=== PATIENT | female | born 1955 | race Caucasian/White ===

== ENCOUNTER 2018-10-19 14:23 | Outpatient (CLI) | payer MEDICARE ==
--- NOTE | 2018-10-19 16:09 | BD ---
BONE DENSITOMETRY USING DEXA 10/19/18 HISTORY: Postmenopausal screening for osteoporosis. FINDINGS: Lumbar Spine: BMD (g/cm2) T-Score: Z-Score: L1 0.850 -1.3 0.3 L2 0.852 -1.6 0.1 L3 0.795 -2.6 -0.8 L4 0.816 -2.2 -2.3 L1-L4 0.826 -2.0 -0.2 Femoral Neck: 0.623 -2.0 -0.5 Total Femur: 0.979 0.3 1.5 The ten year fracture risk for major osteoporotic fracture is 10% and for hip fracture is 1.5%. Impression: Osteopenia. POS: CARL
== END 2018-10-19 14:24 | disposition home or self-care (01) ==
LOC: BICMAMMO 14:23
PROVIDERS: ATTEND Obstetrics & Gynecology
DX: N64.4 Mastodynia (principal); M81.0 Age-related osteoporosis without current pathological fracture; M85.89 Other specified disorders of bone density and structure, multiple sites
CPT/HCPCS: 77066; 77080; G0279

== ENCOUNTER 2018-11-09 08:11 | Outpatient (CLI) | payer MEDICARE ==
--- NOTE | 2018-11-09 10:11 | ULT ---
ULTRASOUND THYROID STANDARD: Date; 11/09/18 HISTORY: Hypothyroidism. COMPARISON: None. TECHNIQUE: Real-time Lange scale and color evaluation of the thyroid was performed. FINDINGS: The isthmus measures 6.0 mm in AP dimension. Right lobe measures 6.0 x 2.0 x 3.0 cm. Left lobe measur es 4.7 x 1.5 x 2.5 cm. The right lobe is hypertrophic. There is a 5.0 x 3.0 x 3.0 mm calcified nodule in the right lobe of the thyroid. Background vascularity is normal. IMPRESSION: Very heterogeneously enlarged right lobe of thyroid may be sequelae of prior thyroiditis. No suspicio us thyroid nodule requiring aspiration or follow-up per TI-RADS criteria. POS: CET
== END 2018-11-09 08:12 | disposition home or self-care (01) ==
LOC: BICULT 08:11
PROVIDERS: ATTEND Internal Medicine
DX: E06.3 Autoimmune thyroiditis (principal); E03.9 Hypothyroidism, unspecified; E07.9 Disorder of thyroid, unspecified; E04.9 Nontoxic goiter, unspecified
CPT/HCPCS: 76536

== ENCOUNTER 2020-02-06 12:29 | Outpatient (CLI) | payer MEDICARE ==
--- NOTE | 2020-02-06 13:41 | ULT ---
THYROID ULTRASOUND INDICATION: Rosario's TECHNIQUE: Grayscale and color Doppler images were obtained of the thyroid gland. COMPARISON: Prior thyroid ultrasound dated November 09, 2018 FINDINGS: Right thyroid lobe: The right thyroid lobe measures 5.1 x 2.5 x 2.2 cm. Lobular with slight increased echogenicity. Small 3.5 mm partially calcified nodule in the interpolar right thyroid gland is stable. No new nodule demonstrated. Thyroid isthmus: The thyroid isthmus measures 0.52 cm. Left thyroid lobe: The left thyroid lobe measures 4.7 x 2.1 x 1.9 cm. No focal thyroid lesion. IMPRESSION: 1. Stable exam. Stable lobulated, mildly prominent thyroid gland may reflect sequela of prior thyroid itis.
== END 2020-02-06 12:30 | disposition home or self-care (01) ==
LOC: BICULT 12:29
PROVIDERS: ATTEND Otolaryngology Plastic Surgery within the Head & Neck
DX: E06.3 Autoimmune thyroiditis (principal)
CPT/HCPCS: 76536

== ENCOUNTER 2020-04-03 19:00 | Outpatient (CLI) | payer MEDICARE | END 2020-04-03 19:01 | disposition home or self-care (01) | LOC: SLEEPLAB 19:00 | PROVIDERS: ATTEND Family Medicine | DX: G47.33 Obstructive sleep apnea (adult) (pediatric) (principal); R53.83 Other fatigue; E66.9 Obesity, unspecified; I10 Essential (primary) hypertension; I25.10 Atherosclerotic heart disease of native coronary artery without angina pectoris; I51.89 Other ill-defined heart diseases | CPT/HCPCS: 95811 ==

== ENCOUNTER 2020-05-28 14:42 | Outpatient (CLI) | payer MEDICARE ==
--- NOTE | 2020-05-28 15:13 | ULT ---
EXAM: Left lower extremity venous Doppler HISTORY: Left foot injury 2 weeks ago. Continued swelling/edema in this region. FINDINGS: Grayscale, color-flow, Doppler evaluation, spectral analysis of the left lower extremity venous struc tures is performed with 2-D imaging. The left common femoral, superficial femoral, popliteal, posterior tibial, proximal greater saphenous and profunda femoral veins are imaged. There is normal luminal compressibility, flow, and augmentation in the visualized deep venous structu res of the left lower extremity. There is a circumscribed hypoechoic area seen at the dorsal aspect of the left foot which measures 2. 5 cm x 2.3 cm x 0.7 cm. Color flow evaluation does not demonstrate flow within this structure. This could represent a small hematoma given history of recent injury. IMPRESSION: 1. No evidence of a deep vein thrombosis in the visualized deep venous structures left lower extremit y. 2. Hypoechoic masslike structure dorsal aspect left foot which likely represents a hematoma given brenda t this is site of recent injury. Follow-up evaluation is recommended to ensure resolution.
== END 2020-05-28 14:43 | disposition home or self-care (01) ==
LOC: BICULT 14:42
PROVIDERS: ATTEND Family Medicine
DX: R60.0 Localized edema (principal)

== ENCOUNTER 2021-02-26 12:57 | Outpatient (CLI) | payer MEDICARE | END 2021-02-26 12:58 | disposition home or self-care (01) | LOC: BICULT 12:57 | PROVIDERS: ATTEND Otolaryngology Plastic Surgery within the Head & Neck | DX: E06.3 Autoimmune thyroiditis (principal) | CPT/HCPCS: 76536 ==

== ENCOUNTER 2021-06-10 13:51 | Outpatient (CLI) | payer MEDICARE | END 2021-06-10 13:52 | disposition home or self-care (01) | LOC: BICULT 13:51 | PROVIDERS: ATTEND Family Medicine | DX: R10.2 Pelvic and perineal pain (principal); R10.31 Right lower quadrant pain; R93.89 Abnormal findings on diagnostic imaging of other specified body structures | CPT/HCPCS: 76856 ==

== ENCOUNTER 2021-09-02 00:46 | Inpatient (IN) | payer MEDICARE ==
[2021-09-02 01:14] LABS: #Basophils 0.1 thou/uL (0.0-0.2); #Eosinphils 0.4 thou/uL (0.0-0.7); #Lymphocytes 4.4 thou/uL (1.20-3.40); #Monocytes 0.7 thou/uL (0.11-0.59); #Neutrophils 4.9 thou/uL (1.40-6.50); %Basophils 0.7 % (0.0-1.0); %Eosinophils 3.9 % (0.0-10.0); %Lymphocytes 41.5 % (21.0-51.0); %Monocytes 7.1 % (0.0-10.0); %Neutrophils 46.8 % (42.0-75.0); Hemoglobin 12.2 g/dL (12.0-16.0); Mean Corpuscular HGB CONC 34.4 g/dL (32.0-36.0); Mean Corpuscular Hemoglobin 29.5 pg (27.0-31.0); Mean Corpuscular Volume 85.8 fL (78.0-98.0); Mean Platelet Volume 6.8 fL (7.4-10.4); Platelet Count 355 thou/uL (130-400); Red Blood Cell (RBC) Count 4.13 mill/uL (4.20-5.40); White Blood Cell (WBC) Count 10.5 thou/uL (4.8-10.8)
[2021-09-02] MEDS ORDERED: Diltiazem HCl 125 MG, Admixture Fee 1 EACH in Sodium Chloride 0.9% 100 ML IVPB SCH (01:15)
[2021-09-02 01:34] LABS: ALT (SGPT) 19 U/L (8-55); AST (SGOT) 18 U/L (5-34); Albumin 4.3 g/dL (3.4-4.8); Alkaline Phosphatase 80 U/L (40-110); Anion Gap 14 mmol/L (10-20); BUN (Urea Nitrogen) 17 mg/dL (9.8-20.1); Bilirubin, Total 0.3 mg/dL (0.2-1.2); Calc. Creatinine Clearance 0 mL/min (70-130); Calcium 9.5 mg/dL (7.8-10.44); Carbon Dioxide 26 mmol/L (23-31); Chloride 105 mmol/L (98-107); Globulin 2.9 g/dL (2.4-3.5); Glucose 104 mg/dL (80-115); Potassium 3.7 mmol/L (3.5-5.1); Protein, Total 7.2 g/dL (5.8-8.1); Sodium 141 mmol/L (136-145)
[2021-09-02] MEDS ORDERED: Acetaminophen 650 MG Suppository PR PRN (03:06)
[2021-09-02] MEDS ORDERED: Acetaminophen 325 MG TAB PO PRN (03:06)
[2021-09-02 04:47] LABS: Magnesium 1.7 mg/dL (1.6-2.6); Phosphorus 3.6 mg/dL (2.3-4.7)
[2021-09-02 07:06] LABS: Troponin I 0.053 ng/mL (< 0.028)
[2021-09-02 09:27] VITALS: BMI 34.3
[2021-09-02] MEDS ORDERED: Enoxaparin Sodium 80 MG/0.8 ML SYRINGE ONE (09:39)
[2021-09-02] MEDS: Enoxaparin Sodium 80 MG/0.8 ML SYRINGE SC SCH ×2 (09:45→20:03)
[2021-09-02] MEDS ORDERED: Acetaminophen 325 MG TAB ONE (09:50)
[2021-09-02 10:36] LABS: Troponin I 0.044 ng/mL (< 0.028)
[2021-09-02 11:35] LABS: SARS-CoV-2 PCR by NAA Not Detected (NotDetected)
[2021-09-02] MEDS ORDERED: Amiodarone 200 MG TAB PO SCH (15:45)
[2021-09-02] MEDS: Amiodarone 200 MG TAB PO SCH (20:03)
[2021-09-02] MEDS: Rosuvastatin 10 MG TAB PO SCH (20:37)
[2021-09-03 04:51] LABS: #Basophils 0.1 thou/uL (0.0-0.2); #Eosinphils 0.3 thou/uL (0.0-0.7); #Lymphocytes 2.4 thou/uL (1.20-3.40); #Monocytes 0.4 thou/uL (0.11-0.59); #Neutrophils 3.3 thou/uL (1.40-6.50); %Basophils 1.1 % (0.0-1.0); %Lymphocytes 36.7 % (21.0-51.0); %Monocytes 6.6 % (0.0-10.0); %Neutrophils 50.6 % (42.0-75.0); Mean Corpuscular HGB CONC 33.1 g/dL (32.0-36.0); Mean Corpuscular Hemoglobin 28.4 pg (27.0-31.0); Mean Corpuscular Volume 85.7 fL (78.0-98.0); Mean Platelet Volume 6.8 fL (7.4-10.4); Platelet Count 322 thou/uL (130-400); RBC Distribution Width 12.2 % (11.5-14.5); Red Blood Cell (RBC) Count 4.22 mill/uL (4.20-5.40); White Blood Cell (WBC) Count 6.6 thou/uL (4.8-10.8)
[2021-09-03 05:11] LABS: ALT (SGPT) 18 U/L (8-55); AST (SGOT) 17 U/L (5-34); Albumin 3.9 g/dL (3.4-4.8); Alkaline Phosphatase 79 U/L (40-110); Anion Gap 12 mmol/L (10-20); BUN (Urea Nitrogen) 18 mg/dL (9.8-20.1); Bilirubin, Total 0.5 mg/dL (0.2-1.2); Calc. Creatinine Clearance 87 mL/min (70-130); Calcium 9.2 mg/dL (7.8-10.44); Carbon Dioxide 28 mmol/L (23-31); Chloride 103 mmol/L (98-107); Globulin 2.8 g/dL (2.4-3.5); Glucose 108 mg/dL (80-115); Potassium 3.9 mmol/L (3.5-5.1); Protein, Total 6.7 g/dL (5.8-8.1); Sodium 139 mmol/L (136-145)
[2021-09-03] MEDS: Thyroid 30 MG TAB PO SCH (05:38)
[2021-09-03] MEDS ORDERED: Non-Formulary Item 1 EACH (Ubidecarenone [Co Q-10] 10 MG Capsule) PO SCH (09:00)
[2021-09-03] MEDS: Magnesium Oxide 400 MG TAB PO SCH (09:04)
[2021-09-03] MEDS: Amiodarone 200 MG TAB PO SCH ×3 (09:05→20:12)
[2021-09-03] MEDS: Lisinopril/Hydrochlorothiazide 20/25 mg Tablet PO SCH (09:06)
[2021-09-03] MEDS: Calcium Carbonate 500 MG TAB PO SCH (09:06)
[2021-09-03] MEDS: Cholecalciferol 1,000 UNITS (25 MCG) TAB PO SCH (09:06)
[2021-09-03] MEDS: Aspirin Chewable 81 MG TAB PO SCH (09:07)
[2021-09-03] MEDS: Enoxaparin Sodium 80 MG/0.8 ML SYRINGE SC SCH ×2 (09:07→20:12)
[2021-09-03] MEDS: Rosuvastatin 10 MG TAB PO SCH (20:12)
[2021-09-04] MEDS: Thyroid 30 MG TAB PO SCH (05:28)
[2021-09-04] MEDS: Amiodarone 200 MG TAB PO SCH (08:18)
[2021-09-04] MEDS: Enoxaparin Sodium 80 MG/0.8 ML SYRINGE SC SCH (08:18)
[2021-09-04] MEDS: Aspirin Chewable 81 MG TAB PO SCH (08:18)
[2021-09-04] MEDS: Cholecalciferol 1,000 UNITS (25 MCG) TAB PO SCH (08:18)
[2021-09-04] MEDS: Magnesium Oxide 400 MG TAB PO SCH (08:19)
[2021-09-04] MEDS: Calcium Carbonate 500 MG TAB PO SCH (08:19)
[2021-09-04] MEDS: Lisinopril/Hydrochlorothiazide 20/25 mg Tablet PO SCH (08:20)
[2021-09-04 11:06] VITALS: BP 133/65; TEMP 98
[2021-09-04] MEDS ORDERED: Apixaban 5 MG TAB PO SCH (21:00)
[2021-09-04] MEDS ORDERED: Amiodarone 200 MG TAB PO SCH (21:00)
== END 2021-09-04 12:14 | disposition home or self-care (01) | DRG 309 ==
LOC: ERS 00:46 → ERHOLD 02:19 → 2SE 17:19
PROVIDERS: ADMIT Student in an Organized Health Care Education/Training Program; ATTEND Student in an Organized Health Care Education/Training Program
DX: I48.0 Paroxysmal atrial fibrillation (principal); I24.8 Other forms of acute ischemic heart disease; Z20.822 Contact with and (suspected) exposure to COVID-19; Z51.5 Encounter for palliative care; I35.0 Nonrheumatic aortic (valve) stenosis; I10 Essential (primary) hypertension; K21.9 Gastro-esophageal reflux disease without esophagitis; E03.9 Hypothyroidism, unspecified; I25.10 Atherosclerotic heart disease of native coronary artery without angina pectoris; Z90.49 Acquired absence of other specified parts of digestive tract; Z82.49 Family history of ischemic heart disease and other diseases of the circulatory system; Z79.82 Long term (current) use of aspirin; Z79.899 Other long term (current) drug therapy
CPT/HCPCS: 36415; 71045; 80053; 83735; 84100; 84443; 84484; 85025; 93005; 93010; 96365; 96366; 96376; J1650; J3490; U0003; U0005

== ENCOUNTER 2021-12-07 13:04 | Inpatient (IN) | payer MEDICARE ==
[~2021-12-07 13:04] MED LIST: Iopamidol-370 76% 500 ML 1 ML ONE
[2021-12-07 13:40] LABS: #Basophils 0.1 thou/uL (0.0-0.2); #Eosinphils 0.1 thou/uL (0.0-0.7); #Lymphocytes 0.7 thou/uL (1.20-3.40); #Monocytes 0.8 thou/uL (0.11-0.59); #Neutrophils 10.9 thou/uL (1.40-6.50); %Basophils 1.1 % (0.0-1.0); %Lymphocytes 5.5 % (21.0-51.0); %Monocytes 6.2 % (0.0-10.0); %Neutrophils 86.3 % (42.0-75.0); Hemoglobin 11.3 g/dL (12.0-16.0); Mean Corpuscular HGB CONC 33.9 g/dL (32.0-36.0); Mean Corpuscular Hemoglobin 28.9 pg (27.0-31.0); Mean Corpuscular Volume 85.2 fL (78.0-98.0); Mean Platelet Volume 6.9 fL (7.4-10.4); Platelet Count 237 thou/uL (130-400); RBC Distribution Width 12.1 % (11.5-14.5); Red Blood Cell (RBC) Count 3.92 mill/uL (4.20-5.40); White Blood Cell (WBC) Count 12.6 thou/uL (4.8-10.8)
[2021-12-07 14:06] LABS: ALT (SGPT) 26 U/L (8-55); AST (SGOT) 22 U/L (5-34); Albumin 3.5 g/dL (3.4-4.8); Alkaline Phosphatase 60 U/L (40-110); Anion Gap 12 mmol/L (10-20); BUN (Urea Nitrogen) 11 mg/dL (9.8-20.1); Bilirubin, Total 0.6 mg/dL (0.2-1.2); Calc. Creatinine Clearance 0 mL/min (70-130); Calcium 8.8 mg/dL (7.8-10.44); Carbon Dioxide 28 mmol/L (23-31); Chloride 97 mmol/L (98-107); Globulin 3.2 g/dL (2.4-3.5); Glucose 98 mg/dL (80-115); Potassium 3.2 mmol/L (3.5-5.1); Protein, Total 6.7 g/dL (5.8-8.1); Sodium 134 mmol/L (136-145)
[2021-12-07] MEDS ORDERED: cefTRIAXone\\ROCEPHIN 1 GM VIAL ONE (14:14)
[2021-12-07] MEDS ORDERED: Dexamethasone 10 MG/ML VIAL ONE (14:15)
[2021-12-07 15:11] LABS: CK (CPK) 39 U/L (29-168); Lipase 26 U/L (8-78)
[2021-12-07] MEDS ORDERED: Ondansetron PF 4 MG/2 ML Vial IVP PRN (15:15)
[2021-12-07] MEDS ORDERED: Ondansetron ODT 4 MG TAB SL PRN (15:15)
[2021-12-07] MEDS ORDERED: Sodium Chloride 0.9% 1,000 ML IV SCH (15:15)
[2021-12-07] MEDS ORDERED: Acetaminophen 325 MG TAB PO PRN (16:53)
[2021-12-07] MEDS ORDERED: Potassium Chloride 20 MEQ TAB PO SCH (17:00)
[2021-12-07] MEDS ORDERED: Pot Chloride/Pot Bicarb/Cit Ac 25 mEq Effervescent Tablet ONE (17:50)
[2021-12-07] MEDS: Lactated Ringer's 1,000 ML IV SCH ×2 (17:58→21:47)
[2021-12-07 19:18] LABS: Magnesium 1.6 mg/dL (1.6-2.6)
[2021-12-07] MEDS ORDERED: Aspirin Chewable 81 MG TAB PO SCH ×2 (21:00)
[2021-12-07] MEDS ORDERED: Rosuvastatin 10 MG TAB PO SCH (21:00)
[2021-12-07] MEDS ORDERED: Thyroid 30 MG TAB PO SCH (21:00)
[2021-12-07 21:33] VITALS: BMI 30.9
[2021-12-07] MEDS: Apixaban 5 MG TAB PO SCH (21:43)
[2021-12-07] MEDS: Amiodarone 200 MG TAB PO SCH (21:44)
[2021-12-07] MEDS: Lisinopril/Hydrochlorothiazide 20/25 mg Tablet PO SCH ×2 (21:44→22:15)
[2021-12-08] MEDS ORDERED: hydrALAZINE 20 MG/ML VIAL SLOW IVP PRN (03:06)
[2021-12-08 07:44] LABS: #Monocytes 0.3 thou/uL (0.11-0.59); #Neutrophils 8.4 thou/uL (1.40-6.50); %Basophils 0.3 % (0.0-1.0); %Eosinophils 0.1 % (0.0-10.0); %Lymphocytes 10.2 % (21.0-51.0); %Monocytes 3.5 % (0.0-10.0); %Neutrophils 85.9 % (42.0-75.0); Hemoglobin 11.4 g/dL (12.0-16.0); Mean Corpuscular HGB CONC 33.3 g/dL (32.0-36.0); Mean Platelet Volume 7.6 fL (7.4-10.4); Platelet Count 256 thou/uL (130-400); RBC Distribution Width 12.1 % (11.5-14.5); Red Blood Cell (RBC) Count 3.92 mill/uL (4.20-5.40); White Blood Cell (WBC) Count 9.8 thou/uL (4.8-10.8)
[2021-12-08 08:02] LABS: Anion Gap 15 mmol/L (10-20); BUN (Urea Nitrogen) 14 mg/dL (9.8-20.1); Calc. Creatinine Clearance 79 mL/min (70-130); Calcium 9.6 mg/dL (7.8-10.44); Carbon Dioxide 24 mmol/L (23-31); Chloride 101 mmol/L (98-107); Glucose 143 mg/dL (80-115); Potassium 3.4 mmol/L (3.5-5.1); Sodium 137 mmol/L (136-145)
[2021-12-08] MEDS ORDERED: Potassium Chloride 20 MEQ TAB PO SCH (08:45)
[2021-12-08] MEDS: Lisinopril/Hydrochlorothiazide 20/25 mg Tablet PO SCH (08:51)
[2021-12-08] MEDS: Rosuvastatin 10 MG TAB PO SCH (08:51)
[2021-12-08] MEDS: Aspirin Chewable 81 MG TAB PO SCH (08:52)
[2021-12-08] MEDS: Apixaban 5 MG TAB PO SCH ×2 (08:53→20:00)
[2021-12-08] MEDS: Dexamethasone 4 MG TAB PO SCH (08:53)
[2021-12-08] MEDS: Amiodarone 200 MG TAB PO SCH ×2 (08:53→20:00)
[2021-12-08] MEDS: Thyroid 30 MG TAB PO SCH (10:43)
[2021-12-08] MEDS: hydrOXYzine 25 MG TAB PO SCH ×2 (15:14→20:02)
[2021-12-08] MEDS: Benzonatate 100 MG CAP PO PRN (21:57)
[2021-12-09 06:17] LABS: #Lymphocytes 1.1 thou/uL (1.20-3.40); #Monocytes 0.6 thou/uL (0.11-0.59); #Neutrophils 13.3 thou/uL (1.40-6.50); %Basophils 0.2 % (0.0-1.0); %Eosinophils 0.1 % (0.0-10.0); %Lymphocytes 7.1 % (21.0-51.0); %Neutrophils 88.7 % (42.0-75.0); Hemoglobin 10.3 g/dL (12.0-16.0); Mean Corpuscular HGB CONC 34.5 g/dL (32.0-36.0); Mean Corpuscular Hemoglobin 29.7 pg (27.0-31.0); Mean Corpuscular Volume 86.2 fL (78.0-98.0); Mean Platelet Volume 7.3 fL (7.4-10.4); Platelet Count 272 thou/uL (130-400); RBC Distribution Width 12.1 % (11.5-14.5); Red Blood Cell (RBC) Count 3.46 mill/uL (4.20-5.40)
[2021-12-09 06:42] LABS: Anion Gap 13 mmol/L (10-20); BUN (Urea Nitrogen) 20 mg/dL (9.8-20.1); Calc. Creatinine Clearance 78 mL/min (70-130); Calcium 9.4 mg/dL (7.8-10.44); Carbon Dioxide 25 mmol/L (23-31); Chloride 102 mmol/L (98-107); Glucose 139 mg/dL (80-115); Potassium 3.9 mmol/L (3.5-5.1); Sodium 136 mmol/L (136-145)
[2021-12-09] MEDS ORDERED: Cholecalciferol 1,000 UNITS (25 MCG) TAB PO SCH (09:00)
[2021-12-09] MEDS ORDERED: Zinc Sulfate 220 MG CAP PO SCH (09:00)
[2021-12-09] MEDS: Aspirin Chewable 81 MG TAB PO SCH (09:24)
[2021-12-09] MEDS: Dexamethasone 4 MG TAB PO SCH (09:24)
[2021-12-09] MEDS: Rosuvastatin 10 MG TAB PO SCH (09:25)
[2021-12-09] MEDS: Apixaban 5 MG TAB PO SCH ×2 (09:25→20:45)
[2021-12-09] MEDS: Magnesium Oxide 400 MG TAB PO SCH (09:25)
[2021-12-09] MEDS: Amiodarone 200 MG TAB PO SCH ×2 (09:25→20:45)
[2021-12-09] MEDS: hydrOXYzine 25 MG TAB PO SCH ×3 (09:25→20:49)
[2021-12-09] MEDS: Thyroid 30 MG TAB PO SCH (09:25)
[2021-12-09] MEDS: Calcium Carbonate 500 MG TAB PO SCH (09:26)
[2021-12-09] MEDS: Lisinopril/Hydrochlorothiazide 20/25 mg Tablet PO SCH (09:36)
[2021-12-09] MEDS: UBIDECARENONE 10 MG PO SCH (10:30)
[2021-12-09] MEDS ORDERED: Loperamide HCl 2 MG CAP PO PRN (10:50)
[2021-12-09] MEDS: Benzonatate 100 MG CAP PO PRN (20:51)
[2021-12-10 05:57] LABS: #Lymphocytes 1.1 thou/uL (1.20-3.40); #Monocytes 0.5 thou/uL (0.11-0.59); #Neutrophils 11.1 thou/uL (1.40-6.50); %Basophils 0.1 % (0.0-1.0); %Eosinophils 0.1 % (0.0-10.0); %Lymphocytes 8.5 % (21.0-51.0); %Monocytes 4.1 % (0.0-10.0); %Neutrophils 87.2 % (42.0-75.0); Hemoglobin 10.6 g/dL (12.0-16.0); Mean Corpuscular HGB CONC 34.3 g/dL (32.0-36.0); Mean Corpuscular Hemoglobin 29.5 pg (27.0-31.0); Mean Corpuscular Volume 85.9 fL (78.0-98.0); Platelet Count 293 thou/uL (130-400); RBC Distribution Width 12.1 % (11.5-14.5); Red Blood Cell (RBC) Count 3.58 mill/uL (4.20-5.40); White Blood Cell (WBC) Count 12.8 thou/uL (4.8-10.8)
[2021-12-10 06:15] LABS: Anion Gap 16 mmol/L (10-20); BUN (Urea Nitrogen) 22 mg/dL (9.8-20.1); Calc. Creatinine Clearance 76 mL/min (70-130); Calcium 9.3 mg/dL (7.8-10.44); Carbon Dioxide 23 mmol/L (23-31); Chloride 103 mmol/L (98-107); Glucose 128 mg/dL (80-115); Sodium 138 mmol/L (136-145)
[2021-12-10] MEDS: Dexamethasone 4 MG TAB PO SCH (08:01)
[2021-12-10] MEDS: Amiodarone 200 MG TAB PO SCH (08:01)
[2021-12-10] MEDS: hydrOXYzine 25 MG TAB PO SCH ×2 (08:01→16:36)
[2021-12-10] MEDS: Rosuvastatin 10 MG TAB PO SCH (08:01)
[2021-12-10] MEDS: Apixaban 5 MG TAB PO SCH (08:01)
[2021-12-10] MEDS: Aspirin Chewable 81 MG TAB PO SCH (08:01)
[2021-12-10] MEDS: Magnesium Oxide 400 MG TAB PO SCH (08:01)
[2021-12-10] MEDS: Thyroid 30 MG TAB PO SCH (08:02)
[2021-12-10] MEDS: Calcium Carbonate 500 MG TAB PO SCH (08:02)
[2021-12-10 08:21] VITALS: TEMP 98
[2021-12-10] MEDS: Lisinopril/Hydrochlorothiazide 20/25 mg Tablet PO SCH (10:09)
[2021-12-10 17:02] VITALS: BP 179/82
== END 2021-12-10 17:41 | disposition home or self-care (01) | DRG 871 ==
LOC: ERS 13:04 → ERHOLD 15:04 → T4-A 20:38
PROVIDERS: ADMIT Family Medicine; ATTEND Family Medicine
PROC: 8E0ZXY6 Isolation (ICD-10-PCS; principal; 2021-12-07)
PROC: 3E0333Z Introduction of Anti-inflammatory into Peripheral Vein, Percutaneous Approach (ICD-10-PCS; 2021-12-10)
DX: A41.89 Other specified sepsis (principal); U07.1 COVID-19; J12.82 Pneumonia due to coronavirus disease 2019; J96.01 Acute respiratory failure with hypoxia; E87.1 Hypo-osmolality and hyponatremia; I48.91 Unspecified atrial fibrillation; I10 Essential (primary) hypertension; K21.9 Gastro-esophageal reflux disease without esophagitis; E03.9 Hypothyroidism, unspecified; R19.7 Diarrhea, unspecified; E87.6 Hypokalemia; E78.5 Hyperlipidemia, unspecified; C00.9 Malignant neoplasm of lip, unspecified; E86.0 Dehydration; Z95.2 Presence of prosthetic heart valve; Z91.040 Latex allergy status; Z79.82 Long term (current) use of aspirin; Z79.01 Long term (current) use of anticoagulants; Z79.899 Other long term (current) drug therapy; Z79.890 Hormone replacement therapy
CPT/HCPCS: 36415; 71045; 71275; 80048; 80053; 82550; 83690; 83735; 83880; 84145; 84484; 85025; 85379; 87324; 87449; 93005; 94760; 96365; 96375; J0360; J0696; J1100; J7050; J7120; J8540; Q9967

== ENCOUNTER 2021-12-19 11:16 | Outpatient (CLI) | payer MEDICARE | END 2021-12-19 11:17 | disposition home or self-care (01) | LOC: BICRAD 11:16 | PROVIDERS: ATTEND Family Medicine | DX: R05.9 Cough, unspecified (principal); R91.8 Other nonspecific abnormal finding of lung field | CPT/HCPCS: 71046 ==

== ENCOUNTER 2021-12-19 12:10 | Inpatient (IN) | payer MEDICARE ==
[2021-12-19 13:36] LABS: #Eosinphils 0.1 thou/uL (0.0-0.7); #Lymphocytes 0.7 thou/uL (1.20-3.40); #Monocytes 0.8 thou/uL (0.11-0.59); #Neutrophils 13.1 thou/uL (1.40-6.50); %Basophils 0.2 % (0.0-1.0); %Eosinophils 0.5 % (0.0-10.0); %Monocytes 5.4 % (0.0-10.0); %Neutrophils 88.8 % (42.0-75.0); Hemoglobin 10.4 g/dL (12.0-16.0); Mean Corpuscular HGB CONC 32.8 g/dL (32.0-36.0); Mean Corpuscular Hemoglobin 28.2 pg (27.0-31.0); Mean Platelet Volume 6.7 fL (7.4-10.4); Platelet Count 339 thou/uL (130-400); RBC Distribution Width 12.4 % (11.5-14.5); Red Blood Cell (RBC) Count 3.71 mill/uL (4.20-5.40); White Blood Cell (WBC) Count 14.7 thou/uL (4.8-10.8)
[2021-12-19 13:57] LABS: ALT (SGPT) 29 U/L (8-55); AST (SGOT) 29 U/L (5-34); Albumin 3.5 g/dL (3.4-4.8); Alkaline Phosphatase 81 U/L (40-110); Anion Gap 18 mmol/L (10-20); BUN (Urea Nitrogen) 13 mg/dL (9.8-20.1); Bilirubin, Total 0.7 mg/dL (0.2-1.2); Calc. Creatinine Clearance 0 mL/min (70-130); Calcium 8.7 mg/dL (7.8-10.44); Carbon Dioxide 24 mmol/L (23-31); Chloride 99 mmol/L (98-107); Globulin 2.8 g/dL (2.4-3.5); Glucose 131 mg/dL (80-115); Potassium 4.1 mmol/L (3.5-5.1); Protein, Total 6.3 g/dL (5.8-8.1); Sodium 137 mmol/L (136-145)
[2021-12-19] MEDS ORDERED: Ondansetron ODT 4 MG TAB PO PRN (15:50)
[2021-12-19] MEDS ORDERED: Iopamidol 370 76% 100 ML VIAL ONE (16:31)
[2021-12-19 17:01] LABS: Lactic Acid 1.1 mmol/L (0.5-2.2)
[2021-12-19] MEDS ORDERED: cefTRIAXone\\ROCEPHIN 1 GM in Sodium Chloride 0.9% 100 ML IVPB SCH (18:00)
[2021-12-19 20:32] LABS: Actual Bicarbonate (HCO3a) 24.8 mEq/L (22-28); Analyzer IN Cardio ER; Base Excess (BEa) 0.9 mEq/L (-2.0 to +3.0); CO2 Tension 36.7 mmHg (35.0-45.0); Calcium, Ionized (arterial) 1.12 mmol/L (1.12-1.30); Carboxyhemoglobin (COHb) 0.3 gm% (0.0-3.0); Hemoglobin (Hb) 10.3 g/dL (12.0-16.0); O2 Tension (PaO2), arterial 67.1 mmHg (> 80.0); pH, Arterial 7.45 (7.35-7.45)
[2021-12-19] MEDS ORDERED: Azithromycin 250 MG TAB ONE (20:33)
[2021-12-19] MEDS ORDERED: cefTRIAXone\\ROCEPHIN 1 GM VIAL ONE (20:33)
[2021-12-19 20:34] LABS: ALV-art Gradient 86.665 mmHg (0-20); Puncture Site LRA
[2021-12-19] MEDS ORDERED: Dexamethasone 4 MG TAB ONE (21:40)
[2021-12-19] MEDS ORDERED: Acetaminophen 325 MG TAB ONE (21:40)
[2021-12-19] MEDS: Dexamethasone 4 MG TAB PO SCH (22:38)
[2021-12-19] MEDS: Acetaminophen 325 MG TAB PO PRN (22:38)
[2021-12-19] MEDS: Amiodarone 200 MG TAB PO SCH (22:38)
[2021-12-19] MEDS: Apixaban 5 MG TAB PO SCH (22:38)
[2021-12-20 00:50] VITALS: BMI 32.3
[2021-12-20 04:15] LABS: #Eosinphils 0.1 thou/uL (0.0-0.7); #Lymphocytes 0.9 thou/uL (1.20-3.40); #Monocytes 0.3 thou/uL (0.11-0.59); %Eosinophils 0.4 % (0.0-10.0); %Lymphocytes 5.5 % (21.0-51.0); %Neutrophils 92.1 % (42.0-75.0); Hemoglobin 9.8 g/dL (12.0-16.0); Mean Corpuscular Hemoglobin 28.2 pg (27.0-31.0); Mean Corpuscular Volume 85.7 fL (78.0-98.0); Mean Platelet Volume 6.9 fL (7.4-10.4); Platelet Count 346 thou/uL (130-400); RBC Distribution Width 12.4 % (11.5-14.5); Red Blood Cell (RBC) Count 3.48 mill/uL (4.20-5.40); White Blood Cell (WBC) Count 16.3 thou/uL (4.8-10.8)
[2021-12-20 04:43] LABS: Strep pneumo Urine Ag NEGATIVE (NEGATIVE)
[2021-12-20 04:44] LABS: ALT (SGPT) 26 U/L (8-55); AST (SGOT) 23 U/L (5-34); Albumin 3.2 g/dL (3.4-4.8); Alkaline Phosphatase 79 U/L (40-110); Anion Gap 16 mmol/L (10-20); BUN (Urea Nitrogen) 15 mg/dL (9.8-20.1); Bilirubin, Total 0.6 mg/dL (0.2-1.2); Calc. Creatinine Clearance 76 mL/min (70-130); Calcium 9.5 mg/dL (7.8-10.44); Carbon Dioxide 24 mmol/L (23-31); Chloride 99 mmol/L (98-107); Globulin 3.8 g/dL (2.4-3.5); Glucose 136 mg/dL (80-115); Potassium 3.7 mmol/L (3.5-5.1); Sodium 135 mmol/L (136-145)
[2021-12-20] MEDS ORDERED: Doxycycline 100 MG CAP PO SCH (09:00)
[2021-12-20] MEDS: Lisinopril/Hydrochlorothiazide 20/25 mg Tablet PO SCH (09:32)
[2021-12-20] MEDS: Rosuvastatin 10 MG TAB PO SCH (09:32)
[2021-12-20] MEDS: Zinc Sulfate 220 MG CAP PO SCH (09:33)
[2021-12-20] MEDS: Cholecalciferol 1,000 UNITS (25 MCG) TAB PO SCH (09:33)
[2021-12-20] MEDS: Apixaban 5 MG TAB PO SCH ×2 (09:34→20:41)
[2021-12-20] MEDS: Magnesium Oxide 400 MG TAB PO SCH (09:34)
[2021-12-20] MEDS: Thyroid 30 MG TAB PO SCH (09:34)
[2021-12-20] MEDS: Amiodarone 200 MG TAB PO SCH ×2 (09:34→20:41)
[2021-12-20] MEDS: Calcium Carbonate 500 MG TAB PO SCH (09:34)
[2021-12-20] MEDS: Aspirin Chewable 81 MG TAB PO SCH (09:34)
[2021-12-20] MEDS ORDERED: Loperamide HCl 1 MG/7.5 ML UDCUP PO PRN (12:28)
[2021-12-20 16:52] LABS: Iron 38 ug/dL (50-170); Iron Binding Capacity, Total 190 mcg/dL (265-497); Transferrin, Serum 152 mg/dL (173-360)
[2021-12-20] MEDS: Dexamethasone 4 MG TAB PO SCH (17:29)
[2021-12-20] MEDS: cefTRIAXone\\ROCEPHIN 1 GM in Sodium Chloride 0.9% 100 ML IVPB SCH (17:29)
[2021-12-20 19:01] LABS: SARS-CoV-2 PCR by NAA DETECTED (NotDetected)
[2021-12-20 19:09] LABS: Ferritin 1504.29 ng/mL (10-291)
[2021-12-20] MEDS: Guaifenesin DM 100-10/5 ML UDCUP PO PRN (20:41)
[2021-12-21] MEDS ORDERED: Albuterol 200 PUFF (6.7GM INHALER) INH PRN (08:17)
[2021-12-21 08:22] LABS: #Lymphocytes 1.2 thou/uL (1.20-3.40); #Monocytes 0.4 thou/uL (0.11-0.59); #Neutrophils 15.4 thou/uL (1.40-6.50); %Basophils 0.1 % (0.0-1.0); %Eosinophils 0.2 % (0.0-10.0); %Monocytes 2.3 % (0.0-10.0); %Neutrophils 90.5 % (42.0-75.0); Hemoglobin 10.1 g/dL (12.0-16.0); Mean Corpuscular HGB CONC 32.5 g/dL (32.0-36.0); Mean Corpuscular Hemoglobin 27.9 pg (27.0-31.0); Mean Corpuscular Volume 85.9 fL (78.0-98.0); Mean Platelet Volume 6.8 fL (7.4-10.4); Platelet Count 470 thou/uL (130-400); RBC Distribution Width 12.4 % (11.5-14.5); Red Blood Cell (RBC) Count 3.61 mill/uL (4.20-5.40); White Blood Cell (WBC) Count 17.1 thou/uL (4.8-10.8)
[2021-12-21 08:38] LABS: ALT (SGPT) 26 U/L (8-55); AST (SGOT) 26 U/L (5-34); Albumin 3.2 g/dL (3.4-4.8); Alkaline Phosphatase 83 U/L (40-110); Anion Gap 20 mmol/L (10-20); BUN (Urea Nitrogen) 29 mg/dL (9.8-20.1); Bilirubin, Total 0.3 mg/dL (0.2-1.2); Calc. Creatinine Clearance 57 mL/min (70-130); Calcium 9.8 mg/dL (7.8-10.44); Carbon Dioxide 22 mmol/L (23-31); Chloride 98 mmol/L (98-107); Globulin 3.9 g/dL (2.4-3.5); Glucose 159 mg/dL (80-115); Potassium 3.6 mmol/L (3.5-5.1); Protein, Total 7.1 g/dL (5.8-8.1); Sodium 136 mmol/L (136-145)
[2021-12-21] MEDS: Cholecalciferol 1,000 UNITS (25 MCG) TAB PO SCH (08:48)
[2021-12-21] MEDS: Calcium Carbonate 500 MG TAB PO SCH (08:49)
[2021-12-21] MEDS: Aspirin Chewable 81 MG TAB PO SCH (08:49)
[2021-12-21] MEDS: Magnesium Oxide 400 MG TAB PO SCH (08:49)
[2021-12-21] MEDS: Apixaban 5 MG TAB PO SCH ×2 (08:49→20:14)
[2021-12-21] MEDS: Rosuvastatin 10 MG TAB PO SCH (08:49)
[2021-12-21] MEDS: Lisinopril/Hydrochlorothiazide 20/25 mg Tablet PO SCH (08:49)
[2021-12-21] MEDS: Amiodarone 200 MG TAB PO SCH ×2 (08:49→20:14)
[2021-12-21] MEDS: Zinc Sulfate 220 MG CAP PO SCH (08:56)
[2021-12-21] MEDS: Thyroid 30 MG TAB PO SCH (08:56)
[2021-12-21] MEDS: Albuterol 200 PUFF (6.7GM INHALER) INH SCH ×3 (09:39→20:05)
[2021-12-21] MEDS: Dexamethasone 4 MG TAB PO SCH (16:42)
[2021-12-21] MEDS: cefTRIAXone\\ROCEPHIN 1 GM in Sodium Chloride 0.9% 100 ML IVPB SCH (16:42)
[2021-12-21] MEDS: Guaifenesin DM 100-10/5 ML UDCUP PO PRN (20:14)
[2021-12-22] MEDS: Albuterol 200 PUFF (6.7GM INHALER) INH SCH ×4 (03:13→18:12)
[2021-12-22 05:25] LABS: #Basophils 0.1 thou/uL (0.0-0.2); #Monocytes 0.5 thou/uL (0.11-0.59); #Neutrophils 13.4 thou/uL (1.40-6.50); %Basophils 0.4 % (0.0-1.0); %Eosinophils 0.3 % (0.0-10.0); %Lymphocytes 6.4 % (21.0-51.0); %Monocytes 3.4 % (0.0-10.0); %Neutrophils 89.4 % (42.0-75.0); Hemoglobin 9.8 g/dL (12.0-16.0); Mean Corpuscular HGB CONC 33.4 g/dL (32.0-36.0); Mean Corpuscular Hemoglobin 28.5 pg (27.0-31.0); Mean Corpuscular Volume 85.5 fL (78.0-98.0); Mean Platelet Volume 7.2 fL (7.4-10.4); Platelet Count 435 thou/uL (130-400); RBC Distribution Width 12.4 % (11.5-14.5); Red Blood Cell (RBC) Count 3.42 mill/uL (4.20-5.40)
[2021-12-22] MEDS ORDERED: Lactated Ringer's 1,000 ML IV SCH (05:30)
[2021-12-22 05:45] LABS: ALT (SGPT) 43 U/L (8-55); AST (SGOT) 37 U/L (5-34); Albumin 3.1 g/dL (3.4-4.8); Alkaline Phosphatase 92 U/L (40-110); Anion Gap 17 mmol/L (10-20); BUN (Urea Nitrogen) 34 mg/dL (9.8-20.1); Bilirubin, Total 0.3 mg/dL (0.2-1.2); Calc. Creatinine Clearance 60 mL/min (70-130); Calcium 9.4 mg/dL (7.8-10.44); Carbon Dioxide 25 mmol/L (23-31); Chloride 100 mmol/L (98-107); Globulin 3.7 g/dL (2.4-3.5); Glucose 146 mg/dL (80-115); Potassium 3.8 mmol/L (3.5-5.1); Protein, Total 6.8 g/dL (5.8-8.1); Sodium 138 mmol/L (136-145)
[2021-12-22] MEDS: Cholecalciferol 1,000 UNITS (25 MCG) TAB PO SCH (08:56)
[2021-12-22] MEDS: Calcium Carbonate 500 MG TAB PO SCH (08:56)
[2021-12-22] MEDS: Aspirin Chewable 81 MG TAB PO SCH (08:57)
[2021-12-22] MEDS: Lisinopril/Hydrochlorothiazide 20/25 mg Tablet PO SCH (08:57)
[2021-12-22] MEDS: Apixaban 5 MG TAB PO SCH ×2 (08:57→20:40)
[2021-12-22] MEDS: Thyroid 30 MG TAB PO SCH (08:57)
[2021-12-22] MEDS: Rosuvastatin 10 MG TAB PO SCH (08:57)
[2021-12-22] MEDS: Magnesium Oxide 400 MG TAB PO SCH (08:57)
[2021-12-22] MEDS: Zinc Sulfate 220 MG CAP PO SCH ×2 (10:41→11:17)
[2021-12-22] MEDS: MULTIVIT/IRON SULF/FOLIC ACID 1 EACH TAB PO SCH (11:17)
[2021-12-22] MEDS: Iron Polysaccharides Complex 150 MG CAP PO SCH (11:17)
[2021-12-22] MEDS ORDERED: Furosemide 20 MG/2 ML VIAL SLOW IVP SCH (12:45)
[2021-12-22] MEDS: Mometasone 200 MCG/Formoterol 5 MCG 120 PUFF INHALER INH SCH ×2 (15:04→20:41)
[2021-12-22] MEDS: cefTRIAXone\\ROCEPHIN 1 GM in Sodium Chloride 0.9% 100 ML IVPB SCH (17:36)
[2021-12-22] MEDS: Dexamethasone 4 MG TAB PO SCH (17:36)
[2021-12-22] MEDS ORDERED: hydrOXYzine 25 MG TAB PO SCH (20:45)
[2021-12-23] MEDS: Mometasone 200 MCG/Formoterol 5 MCG 120 PUFF INHALER INH SCH ×2 (08:03→17:12)
[2021-12-23] MEDS: Albuterol 200 PUFF (6.7GM INHALER) INH SCH ×5 (08:03→23:00)
[2021-12-23 08:25] LABS: #Lymphocytes 1.2 thou/uL (1.20-3.40); #Monocytes 0.3 thou/uL (0.11-0.59); #Neutrophils 11.8 thou/uL (1.40-6.50); %Basophils 0.2 % (0.0-1.0); %Eosinophils 0.2 % (0.0-10.0); %Lymphocytes 9.1 % (21.0-51.0); %Monocytes 1.9 % (0.0-10.0); %Neutrophils 88.6 % (42.0-75.0); Hemoglobin 10.8 g/dL (12.0-16.0); Mean Corpuscular HGB CONC 33.5 g/dL (32.0-36.0); Mean Corpuscular Volume 86.4 fL (78.0-98.0); Mean Platelet Volume 7.1 fL (7.4-10.4); Platelet Count 452 thou/uL (130-400); RBC Distribution Width 12.5 % (11.5-14.5); Red Blood Cell (RBC) Count 3.73 mill/uL (4.20-5.40); White Blood Cell (WBC) Count 13.4 thou/uL (4.8-10.8)
[2021-12-23] MEDS: Aspirin Chewable 81 MG TAB PO SCH (08:47)
[2021-12-23] MEDS: Zinc Sulfate 220 MG CAP PO SCH (08:47)
[2021-12-23] MEDS: Lisinopril/Hydrochlorothiazide 20/25 mg Tablet PO SCH (08:47)
[2021-12-23] MEDS: Thyroid 30 MG TAB PO SCH (08:47)
[2021-12-23] MEDS: Rosuvastatin 10 MG TAB PO SCH (08:47)
[2021-12-23] MEDS: Magnesium Oxide 400 MG TAB PO SCH (08:48)
[2021-12-23] MEDS: Calcium Carbonate 500 MG TAB PO SCH (08:48)
[2021-12-23] MEDS: Cholecalciferol 1,000 UNITS (25 MCG) TAB PO SCH (08:48)
[2021-12-23 08:49] LABS: ALT (SGPT) 64 U/L (8-55); AST (SGOT) 36 U/L (5-34); Albumin 3.3 g/dL (3.4-4.8); Alkaline Phosphatase 106 U/L (40-110); Anion Gap 16 mmol/L (10-20); BUN (Urea Nitrogen) 43 mg/dL (9.8-20.1); Bilirubin, Total 0.4 mg/dL (0.2-1.2); Calc. Creatinine Clearance 61 mL/min (70-130); Calcium 9.7 mg/dL (7.8-10.44); Carbon Dioxide 26 mmol/L (23-31); Chloride 100 mmol/L (98-107); Globulin 3.8 g/dL (2.4-3.5); Glucose 144 mg/dL (80-115); Potassium 3.7 mmol/L (3.5-5.1); Protein, Total 7.1 g/dL (5.8-8.1); Sodium 138 mmol/L (136-145)
[2021-12-23] MEDS: Apixaban 5 MG TAB PO SCH ×2 (08:49→20:01)
[2021-12-23] MEDS: Iron Polysaccharides Complex 150 MG CAP PO SCH (08:49)
[2021-12-23] MEDS: MULTIVIT/IRON SULF/FOLIC ACID 1 EACH TAB PO SCH (08:49)
[2021-12-23] MEDS ORDERED: Amiodarone 200 MG TAB PO SCH (09:00)
[2021-12-23] MEDS: Ubidecarenone 50 MG CAP PO SCH (09:38)
[2021-12-23] MEDS: Dexamethasone 4 MG TAB PO SCH ×2 (11:41→20:01)
[2021-12-23] MEDS: cefTRIAXone\\ROCEPHIN 1 GM in Sodium Chloride 0.9% 100 ML IVPB SCH (17:11)
[2021-12-24] MEDS: Albuterol 200 PUFF (6.7GM INHALER) INH SCH ×6 (04:20→21:49)
[2021-12-24 05:15] LABS: Hemoglobin 10.3 g/dL (12.0-16.0); Hypochromia SLIGHT = 6-15 cells (100X) (0-5/hpf); Lymphocytes 19 % (21-51); MDiff Complete? YES; Mean Corpuscular HGB CONC 31.7 g/dL (32.0-36.0); Mean Corpuscular Hemoglobin 27.2 pg (27.0-31.0); Mean Platelet Volume 6.8 fL (7.4-10.4); Neutrophil 81 % (42-75); Platelet Count 447 thou/uL (130-400); Platelet Morphology Comment Appears Increased; RBC Distribution Width 12.4 % (11.5-14.5); White Blood Cell (WBC) Count 14.3 thou/uL (4.8-10.8)
[2021-12-24 05:22] LABS: ALT (SGPT) 75 U/L (8-55); AST (SGOT) 32 U/L (5-34); Alkaline Phosphatase 104 U/L (40-110); Anion Gap 16 mmol/L (10-20); BUN (Urea Nitrogen) 41 mg/dL (9.8-20.1); Bilirubin, Total 0.4 mg/dL (0.2-1.2); Calc. Creatinine Clearance 63 mL/min (70-130); Calcium 9.5 mg/dL (7.8-10.44); Carbon Dioxide 28 mmol/L (23-31); Chloride 98 mmol/L (98-107); Globulin 3.6 g/dL (2.4-3.5); Glucose 177 mg/dL (80-115); Potassium 3.7 mmol/L (3.5-5.1); Protein, Total 6.6 g/dL (5.8-8.1); Sodium 138 mmol/L (136-145)
[2021-12-24] MEDS: Mometasone 200 MCG/Formoterol 5 MCG 120 PUFF INHALER INH SCH ×2 (09:03→19:30)
[2021-12-24] MEDS: Thyroid 30 MG TAB PO SCH (09:04)
[2021-12-24] MEDS: MULTIVIT/IRON SULF/FOLIC ACID 1 EACH TAB PO SCH (09:04)
[2021-12-24] MEDS: Ubidecarenone 50 MG CAP PO SCH (09:04)
[2021-12-24] MEDS: Iron Polysaccharides Complex 150 MG CAP PO SCH (09:04)
[2021-12-24] MEDS: Rosuvastatin 10 MG TAB PO SCH (09:05)
[2021-12-24] MEDS: Lisinopril/Hydrochlorothiazide 20/25 mg Tablet PO SCH (09:05)
[2021-12-24] MEDS: Calcium Carbonate 500 MG TAB PO SCH (09:06)
[2021-12-24] MEDS: Dexamethasone 4 MG TAB PO SCH ×2 (09:06→16:08)
[2021-12-24] MEDS: Cholecalciferol 1,000 UNITS (25 MCG) TAB PO SCH (09:06)
[2021-12-24] MEDS: Magnesium Oxide 400 MG TAB PO SCH (09:06)
[2021-12-24] MEDS: Apixaban 5 MG TAB PO SCH ×2 (09:07→20:02)
[2021-12-24] MEDS: Aspirin Chewable 81 MG TAB PO SCH (09:07)
[2021-12-24] MEDS: Zinc Sulfate 220 MG CAP PO SCH (09:07)
[2021-12-24] MEDS ORDERED: Furosemide 20 MG/2 ML VIAL SLOW IVP SCH (12:30)
[2021-12-24] MEDS: cefTRIAXone\\ROCEPHIN 1 GM in Sodium Chloride 0.9% 100 ML IVPB SCH (19:29)
[2021-12-24] MEDS ORDERED: hydrOXYzine 10 MG TAB PO SCH (20:00)
[2021-12-25] MEDS: Albuterol 200 PUFF (6.7GM INHALER) INH SCH ×6 (03:07→21:30)
[2021-12-25 05:09] LABS: Band 1 % (5-11); Hemoglobin 10.6 g/dL (12.0-16.0); Lymphocytes 9 % (21-51); MDiff Complete? YES; Mean Corpuscular HGB CONC 32.5 g/dL (32.0-36.0); Mean Corpuscular Volume 86.2 fL (78.0-98.0); Mean Platelet Volume 7.3 fL (7.4-10.4); Metamyelocyte 2 % (0-0); Monocytes 3 % (0-10); Neutrophil 85 % (42-75); Platelet Count 487 thou/uL (130-400); Platelet Morphology Comment Appears Increased; RBC Distribution Width 12.5 % (11.5-14.5); Red Blood Cell (RBC) Count 3.78 mill/uL (4.20-5.40); White Blood Cell (WBC) Count 18.3 thou/uL (4.8-10.8)
[2021-12-25 05:25] LABS: ALT (SGPT) 69 U/L (8-55); AST (SGOT) 27 U/L (5-34); Alkaline Phosphatase 100 U/L (40-110); Anion Gap 16 mmol/L (10-20); BUN (Urea Nitrogen) 57 mg/dL (9.8-20.1); Bilirubin, Total 0.3 mg/dL (0.2-1.2); Calc. Creatinine Clearance 55 mL/min (70-130); Calcium 9.3 mg/dL (7.8-10.44); Carbon Dioxide 29 mmol/L (23-31); Chloride 96 mmol/L (98-107); Globulin 3.8 g/dL (2.4-3.5); Glucose 198 mg/dL (80-115); Potassium 3.4 mmol/L (3.5-5.1); Protein, Total 6.8 g/dL (5.8-8.1); Sodium 138 mmol/L (136-145)
[2021-12-25] MEDS: Mometasone 200 MCG/Formoterol 5 MCG 120 PUFF INHALER INH SCH ×2 (05:50→17:03)
[2021-12-25] MEDS: Cholecalciferol 1,000 UNITS (25 MCG) TAB PO SCH (10:03)
[2021-12-25] MEDS: Aspirin Chewable 81 MG TAB PO SCH (10:03)
[2021-12-25] MEDS: Calcium Carbonate 500 MG TAB PO SCH (10:03)
[2021-12-25] MEDS: Apixaban 5 MG TAB PO SCH ×2 (10:03→20:14)
[2021-12-25] MEDS: Zinc Sulfate 220 MG CAP PO SCH (10:03)
[2021-12-25] MEDS: Lisinopril/Hydrochlorothiazide 20/25 mg Tablet PO SCH (10:04)
[2021-12-25] MEDS: Dexamethasone 4 MG TAB PO SCH ×2 (10:04→17:01)
[2021-12-25] MEDS: Iron Polysaccharides Complex 150 MG CAP PO SCH (10:05)
[2021-12-25] MEDS: MULTIVIT/IRON SULF/FOLIC ACID 1 EACH TAB PO SCH (10:05)
[2021-12-25] MEDS: Magnesium Oxide 400 MG TAB PO SCH (10:05)
[2021-12-25] MEDS: Rosuvastatin 10 MG TAB PO SCH (10:05)
[2021-12-25] MEDS: Thyroid 30 MG TAB PO SCH (10:05)
[2021-12-25] MEDS: Ubidecarenone 50 MG CAP PO SCH (10:06)
[2021-12-25] MEDS ORDERED: Potassium Chloride 20 MEQ TAB PO SCH (12:15)
[2021-12-25] MEDS: cefTRIAXone\\ROCEPHIN 1 GM in Sodium Chloride 0.9% 100 ML IVPB SCH (17:02)
[2021-12-25] MEDS: ALPRAZolam 0.5 MG TAB PO PRN (20:14)
[2021-12-26] MEDS: Albuterol 200 PUFF (6.7GM INHALER) INH SCH ×5 (04:07→18:33)
[2021-12-26] MEDS: Mometasone 200 MCG/Formoterol 5 MCG 120 PUFF INHALER INH SCH ×2 (05:52→19:35)
[2021-12-26 06:26] LABS: Band 5 % (5-11); Hemoglobin 11.2 g/dL (12.0-16.0); Hypochromia SLIGHT = 6-15 cells (100X) (0-5/hpf); Lymphocytes 12 % (21-51); MDiff Complete? YES; Mean Corpuscular HGB CONC 34.6 g/dL (32.0-36.0); Mean Corpuscular Hemoglobin 29.4 pg (27.0-31.0); Mean Platelet Volume 7.3 fL (7.4-10.4); Neutrophil 83 % (42-75); Platelet Count 417 thou/uL (130-400); Platelet Morphology Comment Appears Adequate; RBC Distribution Width 12.5 % (11.5-14.5); White Blood Cell (WBC) Count 17.7 thou/uL (4.8-10.8)
[2021-12-26 06:29] LABS: ALT (SGPT) 66 U/L (8-55); AST (SGOT) 21 U/L (5-34); Albumin 2.9 g/dL (3.4-4.8); Alkaline Phosphatase 96 U/L (40-110); Anion Gap 17 mmol/L (10-20); BUN (Urea Nitrogen) 62 mg/dL (9.8-20.1); Bilirubin, Total 0.5 mg/dL (0.2-1.2); Calc. Creatinine Clearance 59 mL/min (70-130); Calcium 9.2 mg/dL (7.8-10.44); Carbon Dioxide 29 mmol/L (23-31); Chloride 95 mmol/L (98-107); Globulin 3.4 g/dL (2.4-3.5); Glucose 206 mg/dL (80-115); Potassium 3.5 mmol/L (3.5-5.1); Protein, Total 6.3 g/dL (5.8-8.1); Sodium 137 mmol/L (136-145)
[2021-12-26] MEDS: Calcium Carbonate 500 MG TAB PO SCH (10:36)
[2021-12-26] MEDS: Zinc Sulfate 220 MG CAP PO SCH (10:36)
[2021-12-26] MEDS: Lisinopril/Hydrochlorothiazide 20/25 mg Tablet PO SCH (10:36)
[2021-12-26] MEDS: Rosuvastatin 10 MG TAB PO SCH (10:37)
[2021-12-26] MEDS: Cholecalciferol 1,000 UNITS (25 MCG) TAB PO SCH (10:37)
[2021-12-26] MEDS: Dexamethasone 4 MG TAB PO SCH ×2 (10:37→16:25)
[2021-12-26] MEDS: Apixaban 5 MG TAB PO SCH ×2 (10:37→20:28)
[2021-12-26] MEDS: Ubidecarenone 50 MG CAP PO SCH (10:38)
[2021-12-26] MEDS: Iron Polysaccharides Complex 150 MG CAP PO SCH (10:38)
[2021-12-26] MEDS: MULTIVIT/IRON SULF/FOLIC ACID 1 EACH TAB PO SCH (10:38)
[2021-12-26] MEDS: Aspirin Chewable 81 MG TAB PO SCH (10:38)
[2021-12-26] MEDS: Magnesium Oxide 400 MG TAB PO SCH (10:38)
[2021-12-26] MEDS: Fluticasone Propionate Nasal Spray 16 gm Bottle NASAL SCH (10:38)
[2021-12-26] MEDS: Thyroid 30 MG TAB PO SCH (10:38)
[2021-12-26] MEDS: Guaifenesin DM 100-10/5 ML UDCUP PO PRN ×2 (16:24→20:27)
[2021-12-26] MEDS: cefTRIAXone\\ROCEPHIN 1 GM in Sodium Chloride 0.9% 100 ML IVPB SCH (16:26)
[2021-12-26] MEDS: ALPRAZolam 0.5 MG TAB PO PRN (20:27)
[2021-12-27] MEDS: Albuterol 200 PUFF (6.7GM INHALER) INH SCH ×5 (03:38→19:27)
[2021-12-27 04:42] LABS: ALT (SGPT) 64 U/L (8-55); AST (SGOT) 21 U/L (5-34); Albumin 2.9 g/dL (3.4-4.8); Alkaline Phosphatase 90 U/L (40-110); Anion Gap 11 mmol/L (10-20); BUN (Urea Nitrogen) 61 mg/dL (9.8-20.1); Bilirubin, Total 0.4 mg/dL (0.2-1.2); Calc. Creatinine Clearance 54 mL/min (70-130); Carbon Dioxide 33 mmol/L (23-31); Chloride 95 mmol/L (98-107); Globulin 3.2 g/dL (2.4-3.5); Glucose 208 mg/dL (80-115); Potassium 3.4 mmol/L (3.5-5.1); Protein, Total 6.1 g/dL (5.8-8.1); Sodium 136 mmol/L (136-145)
[2021-12-27 04:56] LABS: Band 1 % (5-11); Hemoglobin 11.1 g/dL (12.0-16.0); Lymphocytes 3 % (21-51); MDiff Complete? YES; Mean Corpuscular HGB CONC 33.9 g/dL (32.0-36.0); Mean Corpuscular Hemoglobin 28.8 pg (27.0-31.0); Mean Corpuscular Volume 84.8 fL (78.0-98.0); Mean Platelet Volume 7.3 fL (7.4-10.4); Metamyelocyte 2 % (0-0); Monocytes 1 % (0-10); Myelocyte 2 % (0-0); Neutrophil 91 % (42-75); Platelet Count 423 thou/uL (130-400); RBC Distribution Width 12.5 % (11.5-14.5); Red Blood Cell (RBC) Count 3.85 mill/uL (4.20-5.40); White Blood Cell (WBC) Count 18.1 thou/uL (4.8-10.8)
[2021-12-27] MEDS: Mometasone 200 MCG/Formoterol 5 MCG 120 PUFF INHALER INH SCH ×2 (07:11→19:27)
[2021-12-27] MEDS ORDERED: Dextrose 5% in Water 1,000 ML IV PRN (09:48)
[2021-12-27] MEDS ORDERED: Dextrose 50% Abboject 50 ML SYRINGE SLOW IVP PRN (09:48)
[2021-12-27] MEDS ORDERED: Loratadine 5 MG/5 ML UDCUP PO SCH (10:00)
[2021-12-27] MEDS: Fluticasone Propionate Nasal Spray 16 gm Bottle NASAL SCH (10:06)
[2021-12-27] MEDS: Cholecalciferol 1,000 UNITS (25 MCG) TAB PO SCH (10:07)
[2021-12-27] MEDS: Iron Polysaccharides Complex 150 MG CAP PO SCH (10:07)
[2021-12-27] MEDS: Dexamethasone 4 MG TAB PO SCH ×2 (10:07→16:29)
[2021-12-27] MEDS: Aspirin Chewable 81 MG TAB PO SCH (10:07)
[2021-12-27] MEDS: MULTIVIT/IRON SULF/FOLIC ACID 1 EACH TAB PO SCH (10:07)
[2021-12-27] MEDS: Ubidecarenone 50 MG CAP PO SCH (10:07)
[2021-12-27] MEDS: Thyroid 30 MG TAB PO SCH (10:07)
[2021-12-27] MEDS: Zinc Sulfate 220 MG CAP PO SCH (10:08)
[2021-12-27] MEDS: Magnesium Oxide 400 MG TAB PO SCH (10:08)
[2021-12-27] MEDS: Apixaban 5 MG TAB PO SCH ×2 (10:09→21:37)
[2021-12-27] MEDS: Lisinopril/Hydrochlorothiazide 20/25 mg Tablet PO SCH (10:09)
[2021-12-27] MEDS: Calcium Carbonate 500 MG TAB PO SCH (10:09)
[2021-12-27] MEDS: Rosuvastatin 10 MG TAB PO SCH (10:09)
[2021-12-27] MEDS ORDERED: Loratadine 10 MG TAB PO SCH (10:15)
[2021-12-27] MEDS ORDERED: Calcium Carbonate 500 MG TAB PO SCH (11:00)
[2021-12-27] MEDS: cefTRIAXone\\ROCEPHIN 1 GM in Sodium Chloride 0.9% 100 ML IVPB SCH (16:30)
[2021-12-28] MEDS: Albuterol 200 PUFF (6.7GM INHALER) INH SCH ×5 (03:02→17:44)
[2021-12-28 05:10] LABS: ALT (SGPT) 66 U/L (8-55); AST (SGOT) 21 U/L (5-34); Albumin 2.8 g/dL (3.4-4.8); Alkaline Phosphatase 85 U/L (40-110); Anion Gap 15 mmol/L (10-20); BUN (Urea Nitrogen) 55 mg/dL (9.8-20.1); Bilirubin, Total 0.4 mg/dL (0.2-1.2); Calc. Creatinine Clearance 65 mL/min (70-130); Carbon Dioxide 30 mmol/L (23-31); Chloride 95 mmol/L (98-107); Glucose 245 mg/dL (80-115); Potassium 3.6 mmol/L (3.5-5.1); Protein, Total 5.8 g/dL (5.8-8.1); Sodium 136 mmol/L (136-145)
[2021-12-28 05:15] LABS: Band 8 % (5-11); Lymphocytes 12 % (21-51); MDiff Complete? YES; Mean Corpuscular HGB CONC 32.3 g/dL (32.0-36.0); Mean Corpuscular Hemoglobin 27.5 pg (27.0-31.0); Mean Corpuscular Volume 85.1 fL (78.0-98.0); Mean Platelet Volume 7.7 fL (7.4-10.4); Monocytes 1 % (0-10); Neutrophil 79 % (42-75); Platelet Count 409 thou/uL (130-400); RBC Distribution Width 12.5 % (11.5-14.5); Red Blood Cell (RBC) Count 4.01 mill/uL (4.20-5.40); White Blood Cell (WBC) Count 16.3 thou/uL (4.8-10.8)
[2021-12-28] MEDS: Mometasone 200 MCG/Formoterol 5 MCG 120 PUFF INHALER INH SCH ×2 (07:12→17:45)
[2021-12-28] MEDS: Aspirin Chewable 81 MG TAB PO SCH (09:07)
[2021-12-28] MEDS: Calcium Carbonate 500 MG TAB PO SCH (09:07)
[2021-12-28] MEDS: Rosuvastatin 10 MG TAB PO SCH (09:07)
[2021-12-28] MEDS: Lisinopril/Hydrochlorothiazide 20/25 mg Tablet PO SCH (09:08)
[2021-12-28] MEDS: Loratadine 10 MG TAB PO SCH (09:08)
[2021-12-28] MEDS: Cholecalciferol 1,000 UNITS (25 MCG) TAB PO SCH (09:08)
[2021-12-28] MEDS: Dexamethasone 4 MG TAB PO SCH ×2 (09:08→17:44)
[2021-12-28] MEDS: Ubidecarenone 50 MG CAP PO SCH (09:09)
[2021-12-28] MEDS: Zinc Sulfate 220 MG CAP PO SCH (09:09)
[2021-12-28] MEDS: Magnesium Oxide 400 MG TAB PO SCH (09:09)
[2021-12-28] MEDS: Apixaban 5 MG TAB PO SCH ×2 (09:09→22:03)
[2021-12-28] MEDS: Iron Polysaccharides Complex 150 MG CAP PO SCH (09:10)
[2021-12-28] MEDS: Thyroid 30 MG TAB PO SCH (09:10)
[2021-12-28] MEDS: MULTIVIT/IRON SULF/FOLIC ACID 1 EACH TAB PO SCH (09:10)
[2021-12-28] MEDS: Fluticasone Propionate Nasal Spray 16 gm Bottle NASAL SCH (09:11)
[2021-12-28] MEDS ORDERED: Albuterol 200 PUFF (6.7GM INHALER) INH SCH (14:15)
[2021-12-28] MEDS: cefTRIAXone\\ROCEPHIN 1 GM in Sodium Chloride 0.9% 100 ML IVPB SCH (17:43)
[2021-12-29] MEDS: Albuterol 200 PUFF (6.7GM INHALER) INH SCH ×7 (00:34→23:45)
[2021-12-29 05:14] LABS: Hemoglobin 11.2 g/dL (12.0-16.0); Mean Corpuscular HGB CONC 35.3 g/dL (32.0-36.0); Mean Corpuscular Hemoglobin 29.7 pg (27.0-31.0); Mean Corpuscular Volume 84.1 fL (78.0-98.0); Mean Platelet Volume 7.7 fL (7.4-10.4); Platelet Count 328 thou/uL (130-400); RBC Distribution Width 12.5 % (11.5-14.5); Red Blood Cell (RBC) Count 3.76 mill/uL (4.20-5.40); White Blood Cell (WBC) Count 18.7 thou/uL (4.8-10.8)
[2021-12-29 05:30] LABS: ALT (SGPT) 69 U/L (8-55); AST (SGOT) 23 U/L (5-34); Albumin 2.7 g/dL (3.4-4.8); Alkaline Phosphatase 75 U/L (40-110); Anion Gap 12 mmol/L (10-20); BUN (Urea Nitrogen) 50 mg/dL (9.8-20.1); Bilirubin, Total 0.4 mg/dL (0.2-1.2); Calc. Creatinine Clearance 69 mL/min (70-130); Calcium 8.8 mg/dL (7.8-10.44); Carbon Dioxide 29 mmol/L (23-31); Chloride 96 mmol/L (98-107); Globulin 2.8 g/dL (2.4-3.5); Glucose 252 mg/dL (80-115); Potassium 3.3 mmol/L (3.5-5.1); Protein, Total 5.5 g/dL (5.8-8.1); Sodium 134 mmol/L (136-145)
[2021-12-29] MEDS: Mometasone 200 MCG/Formoterol 5 MCG 120 PUFF INHALER INH SCH ×2 (05:53→19:10)
[2021-12-29 05:55] LABS: Band 3 % (5-11); Lymphocytes 5 % (21-51); MDiff Complete? YES; Monocytes 3 % (0-10); Myelocyte 3 % (0-0); Neutrophil 86 % (42-75)
[2021-12-29] MEDS ORDERED: Lisinopril 20 MG TAB PO SCH ×2 (09:00→21:00)
[2021-12-29] MEDS ORDERED: Potassium Chloride 20 MEQ TAB PO SCH (09:00)
[2021-12-29] MEDS: Fluticasone Propionate Nasal Spray 16 gm Bottle NASAL SCH (09:22)
[2021-12-29] MEDS: Calcium Carbonate 500 MG TAB PO SCH (09:22)
[2021-12-29] MEDS: Dexamethasone 4 MG TAB PO SCH ×2 (09:24→16:41)
[2021-12-29] MEDS: Iron Polysaccharides Complex 150 MG CAP PO SCH (09:24)
[2021-12-29] MEDS: Magnesium Oxide 400 MG TAB PO SCH (09:24)
[2021-12-29] MEDS: Ubidecarenone 50 MG CAP PO SCH (09:25)
[2021-12-29] MEDS: Loratadine 10 MG TAB PO SCH (09:25)
[2021-12-29] MEDS: Aspirin Chewable 81 MG TAB PO SCH (09:25)
[2021-12-29] MEDS: Hydrochlorothiazide 25 MG TAB PO SCH (09:25)
[2021-12-29] MEDS: Rosuvastatin 10 MG TAB PO SCH (09:26)
[2021-12-29] MEDS: MULTIVIT/IRON SULF/FOLIC ACID 1 EACH TAB PO SCH (09:26)
[2021-12-29] MEDS: Cholecalciferol 1,000 UNITS (25 MCG) TAB PO SCH (09:26)
[2021-12-29] MEDS: Apixaban 5 MG TAB PO SCH ×2 (09:27→20:13)
[2021-12-29] MEDS ORDERED: Lantus 1000 UNITS/10 ML VIAL SC SCH (09:30)
[2021-12-29] MEDS: Thyroid 30 MG TAB PO SCH (10:18)
[2021-12-29] MEDS: Zinc Sulfate 220 MG CAP PO SCH (10:19)
[2021-12-29] MEDS: HumaLOG 300 UNITS/3 ML VIAL SC PRN ×2 (10:29→16:42)
[2021-12-29] MEDS ORDERED: Hydrochlorothiazide 25 MG TAB PO SCH (21:00)
[2021-12-29] MEDS ORDERED: HumaLOG 300 UNITS/3 ML VIAL SC PRN (21:21)
[2021-12-30] MEDS: Albuterol 200 PUFF (6.7GM INHALER) INH SCH ×4 (03:02→13:28)
[2021-12-30 04:46] LABS: ALT (SGPT) 66 U/L (8-55); AST (SGOT) 18 U/L (5-34); Albumin 2.8 g/dL (3.4-4.8); Alkaline Phosphatase 72 U/L (40-110); Anion Gap 11 mmol/L (10-20); BUN (Urea Nitrogen) 51 mg/dL (9.8-20.1); Bilirubin, Total 0.5 mg/dL (0.2-1.2); Calc. Creatinine Clearance 74 mL/min (70-130); Calcium 8.8 mg/dL (7.8-10.44); Carbon Dioxide 30 mmol/L (23-31); Chloride 100 mmol/L (98-107); Globulin 2.7 g/dL (2.4-3.5); Glucose 209 mg/dL (80-115); Potassium 3.6 mmol/L (3.5-5.1); Protein, Total 5.5 g/dL (5.8-8.1); Sodium 137 mmol/L (136-145)
[2021-12-30] MEDS: Acetaminophen 325 MG TAB PO PRN (05:06)
[2021-12-30] MEDS: HumaLOG 300 UNITS/3 ML VIAL SC PRN (05:55)
[2021-12-30 06:18] LABS: Hemoglobin 11.1 g/dL (12.0-16.0); Mean Corpuscular HGB CONC 34.7 g/dL (32.0-36.0); Mean Corpuscular Hemoglobin 29.5 pg (27.0-31.0); Mean Platelet Volume 8.1 fL (7.4-10.4); Platelet Count 300 thou/uL (130-400); RBC Distribution Width 12.6 % (11.5-14.5); Red Blood Cell (RBC) Count 3.74 mill/uL (4.20-5.40)
[2021-12-30] MEDS: Mometasone 200 MCG/Formoterol 5 MCG 120 PUFF INHALER INH SCH (06:32)
[2021-12-30 06:51] LABS: Band 9 % (5-11); Lymphocytes 9 % (21-51); MDiff Complete? YES; Monocytes 1 % (0-10); Neutrophil 81 % (42-75)
[2021-12-30] MEDS: Dexamethasone 4 MG TAB PO SCH (07:58)
[2021-12-30] MEDS: Magnesium Oxide 400 MG TAB PO SCH (07:58)
[2021-12-30] MEDS: Cholecalciferol 1,000 UNITS (25 MCG) TAB PO SCH (07:59)
[2021-12-30] MEDS: Zinc Sulfate 220 MG CAP PO SCH (08:00)
[2021-12-30] MEDS: Rosuvastatin 10 MG TAB PO SCH (08:00)
[2021-12-30] MEDS: Calcium Carbonate 500 MG TAB PO SCH (08:00)
[2021-12-30] MEDS: Hydrochlorothiazide 25 MG TAB PO SCH (08:00)
[2021-12-30] MEDS: Loratadine 10 MG TAB PO SCH (08:00)
[2021-12-30] MEDS: Aspirin Chewable 81 MG TAB PO SCH (08:00)
[2021-12-30] MEDS: Ubidecarenone 50 MG CAP PO SCH (08:01)
[2021-12-30] MEDS: Thyroid 30 MG TAB PO SCH (08:01)
[2021-12-30] MEDS: Iron Polysaccharides Complex 150 MG CAP PO SCH (08:01)
[2021-12-30] MEDS: Apixaban 5 MG TAB PO SCH (08:01)
[2021-12-30] MEDS: Fluticasone Propionate Nasal Spray 16 gm Bottle NASAL SCH (08:02)
[2021-12-30] MEDS ORDERED: Lantus 1000 UNITS/10 ML VIAL SC SCH (09:00)
[2021-12-30] MEDS ORDERED: Hydrochlorothiazide 25 MG TAB PO SCH (09:00)
[2021-12-30] MEDS: MULTIVIT/IRON SULF/FOLIC ACID 1 EACH TAB PO SCH (13:11)
[2021-12-30 15:41] VITALS: TEMP 97.8
[2021-12-30 17:22] VITALS: BP 135/63
[2021-12-30] MEDS ORDERED: Lisinopril 20 MG TAB PO SCH (21:00)
== END 2021-12-30 17:09 | DRG 177 ==
LOC: ERS 12:10 → ERHOLD 14:49 → OBSVTOIN 16:43 → 2NO 12-20 00:37
PROVIDERS: ADMIT Family Medicine; ATTEND Family Medicine
PROC: 8E0ZXY6 Isolation (ICD-10-PCS; principal; 2021-12-19)
DX: U07.1 COVID-19 (principal); J12.82 Pneumonia due to coronavirus disease 2019; J96.01 Acute respiratory failure with hypoxia; I50.1 Left ventricular failure, unspecified; N17.9 Acute kidney failure, unspecified; I48.91 Unspecified atrial fibrillation; I10 Essential (primary) hypertension; K21.9 Gastro-esophageal reflux disease without esophagitis; E03.9 Hypothyroidism, unspecified; E78.5 Hyperlipidemia, unspecified; R19.7 Diarrhea, unspecified; R73.9 Hyperglycemia, unspecified; T38.0X5A Adverse effect of glucocorticoids and synthetic analogues, initial encounter; D72.829 Elevated white blood cell count, unspecified; I35.0 Nonrheumatic aortic (valve) stenosis; C00.9 Malignant neoplasm of lip, unspecified; D75.838 Other thrombocytosis; J30.9 Allergic rhinitis, unspecified; E87.6 Hypokalemia; F41.9 Anxiety disorder, unspecified; Z91.040 Latex allergy status; Z95.5 Presence of coronary angioplasty implant and graft; Z95.2 Presence of prosthetic heart valve; Z79.82 Long term (current) use of aspirin; Z79.01 Long term (current) use of anticoagulants; Z79.890 Hormone replacement therapy; Z79.899 Other long term (current) drug therapy
CPT/HCPCS: 36415; 36416; 36600; 71045; 71275; 80053; 82607; 82728; 82746; 82805; 83540; 83550; 83605; 83630; 83880; 84145; 84466; 84484; 85025; 86140; 87040; 87045; 87046; 87324; 87328; 87329; 87427; 87449; 93005; 93306; 94664; 96374; G0378; J0696; J1815; J1940; J3490; J7120; J8540; Q9967; U0003; U0005

== ENCOUNTER 2022-01-09 13:58 | Inpatient (IN) | payer MEDICARE ==
[~2022-01-09 13:58] MED LIST changes: +Iopamidol 370 76% 100 ML VIAL ONE; -Iopamidol-370 76% 500 ML 1 ML ONE
[2022-01-09 15:32] LABS: CKMB 0.8 ng/mL (0-6.6)
[2022-01-09] MEDS ORDERED: Cefepime 2 GM VIAL ONE (16:17)
[2022-01-09] MEDS ORDERED: methylPREDNISolone Sod Succ/PF 125 MG/2 ML VIAL ONE (16:17)
[2022-01-09] MEDS ORDERED: Acetaminophen 325 MG TAB PO PRN (16:49)
[2022-01-09] MEDS ORDERED: Lactated Ringer's 1,000 ML IV SCH (17:00)
[2022-01-09] MEDS ORDERED: Vancomycin 1 GM/200 ML BAG ONE (17:34)
[2022-01-09] MEDS ORDERED: Ondansetron ODT 4 MG TAB PO PRN (17:58)
[2022-01-09] MEDS ORDERED: Guaifenesin DM 100-10/5 ML UDCUP PO PRN (17:58)
[2022-01-09] MEDS ORDERED: Albuterol 200 PUFF (6.7GM INHALER) INH PRN (17:58)
[2022-01-09] MEDS ORDERED: Loperamide HCl 1 MG/7.5 ML UDCUP PO PRN (17:58)
[2022-01-09] MEDS ORDERED: ALPRAZolam 0.5 MG TAB PO PRN (17:58)
[2022-01-09] MEDS ORDERED: Dextrose 5% in Water 1,000 ML IV PRN (18:03)
[2022-01-09] MEDS ORDERED: Dextrose 50% Abboject 50 ML SYRINGE SLOW IVP PRN (18:03)
[2022-01-09 18:08] LABS: Lactic Acid 1.2 mmol/L (0.5-2.2)
[2022-01-09 18:21] LABS: Troponin I 0.042 ng/mL (< 0.028)
[2022-01-09] MEDS ORDERED: Albuterol 200 PUFF (6.7GM INHALER) INH SCH (18:30)
[2022-01-09] MEDS: Mometasone 200 MCG/Formoterol 5 MCG 120 PUFF INHALER INH SCH (19:50)
[2022-01-09] MEDS: Potassium Chloride 20 MEQ in Premix Bag 1 BAG IVPB SCH ×2 (19:53→21:40)
[2022-01-09] MEDS: Aspirin 81 mg Enteric Coated Tablet PO SCH (20:02)
[2022-01-09] MEDS: Apixaban 5 MG TAB PO SCH (20:02)
[2022-01-09] MEDS: Lisinopril 20 MG TAB PO SCH (20:02)
[2022-01-09] MEDS: Rosuvastatin 10 MG TAB PO SCH (20:02)
[2022-01-09 23:27] LABS: Troponin I 0.028 ng/mL (< 0.028)
[2022-01-09 23:39] LABS: Chloride 97 mmol/L (98-107); Potassium 3.5 mmol/L (3.5-5.1); Sodium 137 mmol/L (136-145)
[2022-01-09 23:40] LABS: Calcium 7.7 mg/dL (7.8-10.44)
[2022-01-09 23:41] LABS: Glucose 264 mg/dL (80-115)
[2022-01-09 23:42] LABS: Anion Gap 15 mmol/L (10-20); Carbon Dioxide 29 mmol/L (23-31)
[2022-01-09 23:44] LABS: Calc. Creatinine Clearance 0 mL/min (70-130)
[2022-01-09 23:45] LABS: BUN (Urea Nitrogen) 31 mg/dL (9.8-20.1)
[2022-01-10] MEDS: Thyroid 30 MG TAB PO SCH ×2 (00:51→21:00)
[2022-01-10 04:42] LABS: ALT (SGPT) 50 U/L (8-55); AST (SGOT) 24 U/L (5-34); Albumin 2.5 g/dL (3.4-4.8); Alkaline Phosphatase 79 U/L (40-110); Anion Gap 14 mmol/L (10-20); BUN (Urea Nitrogen) 32 mg/dL (9.8-20.1); Bilirubin, Total 0.6 mg/dL (0.2-1.2); Calc. Creatinine Clearance 0 mL/min (70-130); Calcium 8.6 mg/dL (7.8-10.44); Carbon Dioxide 28 mmol/L (23-31); Chloride 97 mmol/L (98-107); Globulin 3.1 g/dL (2.4-3.5); Glucose 245 mg/dL (80-115); Protein, Total 5.6 g/dL (5.8-8.1); Sodium 136 mmol/L (136-145)
[2022-01-10 05:02] LABS: #Lymphocytes 0.5 thou/uL (1.20-3.40); #Monocytes 0.1 thou/uL (0.11-0.59); #Neutrophils 6.7 thou/uL (1.40-6.50); %Eosinophils 0.2 % (0.0-10.0); %Lymphocytes 6.9 % (21.0-51.0); %Monocytes 1.4 % (0.0-10.0); %Neutrophils 91.5 % (42.0-75.0); Hemoglobin 8.6 g/dL (12.0-16.0); Mean Corpuscular HGB CONC 31.3 g/dL (32.0-36.0); Mean Corpuscular Hemoglobin 27.6 pg (27.0-31.0); Mean Corpuscular Volume 88.1 fL (78.0-98.0); Mean Platelet Volume 8.9 fL (7.4-10.4); Platelet Count 69 thou/uL (130-400); RBC Distribution Width 13.5 % (11.5-14.5); Red Blood Cell (RBC) Count 3.13 mill/uL (4.20-5.40); White Blood Cell (WBC) Count 7.4 thou/uL (4.8-10.8)
[2022-01-10] MEDS ORDERED: Potassium Chloride 20 MEQ TAB PO SCH (08:00)
[2022-01-10] MEDS: Mometasone 200 MCG/Formoterol 5 MCG 120 PUFF INHALER INH SCH ×2 (08:02→19:39)
[2022-01-10] MEDS: Cholecalciferol 1,000 UNITS (25 MCG) TAB PO SCH (09:40)
[2022-01-10] MEDS: Multivitamin W/ Minerals 1 TAB PO SCH (09:47)
[2022-01-10] MEDS: Hydrochlorothiazide 25 MG TAB PO SCH (09:47)
[2022-01-10] MEDS: Apixaban 5 MG TAB PO SCH ×2 (09:48→21:00)
[2022-01-10] MEDS: Calcium Carbonate 500 MG TAB PO SCH (09:48)
[2022-01-10] MEDS: Magnesium Oxide 400 MG TAB PO SCH (09:48)
[2022-01-10] MEDS: Iron Polysaccharides Complex 150 MG CAP PO SCH (09:49)
[2022-01-10] MEDS ORDERED: Albuterol Sulfate 2.5 mg/3 ml Neb NEB PRN (09:51)
[2022-01-10] MEDS: Dexamethasone 4 MG TAB PO SCH (09:55)
[2022-01-10] MEDS: Loratadine 10 MG TAB PO SCH (09:56)
[2022-01-10] MEDS: Lantus 1000 UNITS/10 ML VIAL SC SCH (09:56)
[2022-01-10] MEDS ORDERED: Electrolyte Replacement Protocol 1 EACH FS SCH (10:00)
[2022-01-10 11:24] VITALS: BMI 31.3
[2022-01-10] MEDS: Micafungin 100 MG in Sodium Chloride 0.9% 100 ML IVPB SCH (11:52)
[2022-01-10 13:21] LABS: BUN (Urea Nitrogen) 35 mg/dL (9.8-20.1); Calc. Creatinine Clearance 74 mL/min (70-130); Calcium 8.7 mg/dL (7.8-10.44); Chloride 98 mmol/L (98-107); Glucose 250 mg/dL (80-115); Sodium 137 mmol/L (136-145)
[2022-01-10 13:32] LABS: Potassium 2.9 mmol/L (3.5-5.1)
[2022-01-10 14:34] LABS: Anion Gap 9 mmol/L (10-20); Carbon Dioxide 32 mmol/L (23-31)
[2022-01-10] MEDS: Fluticasone Propionate Nasal Spray 16 gm Bottle NASAL SCH ×2 (14:44→16:49)
[2022-01-10] MEDS: Ubidecarenone 50 MG CAP PO SCH ×2 (14:44→21:00)
[2022-01-10] MEDS: Zinc Sulfate 220 MG CAP PO SCH (14:45)
[2022-01-10] MEDS ORDERED: Electrolyte Replacement Protocol FS PRN (15:15)
[2022-01-10] MEDS: Potassium Chloride 20 MEQ TAB PO SCH ×2 (15:48→18:40)
[2022-01-10] MEDS: HumaLOG 300 UNITS/3 ML VIAL SC PRN ×2 (17:20→21:04)
[2022-01-10] MEDS: Rosuvastatin 10 MG TAB PO SCH (21:00)
[2022-01-10] MEDS: Lisinopril 20 MG TAB PO SCH (21:00)
[2022-01-10] MEDS: Aspirin 81 mg Enteric Coated Tablet PO SCH (21:01)
[2022-01-10] MEDS: Cefepime 1 GM in Sodium Chloride 0.9% 100 ML IVPB SCH (21:01)
[2022-01-10] MEDS: Sodium Chloride 0.65% Nasal 44 ML BOT EA NARE PRN (21:01)
[2022-01-11 06:07] LABS: #Lymphocytes 0.6 thou/uL (1.20-3.40); #Monocytes 0.2 thou/uL (0.11-0.59); #Neutrophils 9.8 thou/uL (1.40-6.50); %Eosinophils 0.1 % (0.0-10.0); %Lymphocytes 5.6 % (21.0-51.0); %Monocytes 1.8 % (0.0-10.0); %Neutrophils 92.6 % (42.0-75.0); Hemoglobin 8.8 g/dL (12.0-16.0); Mean Corpuscular HGB CONC 32.6 g/dL (32.0-36.0); Mean Corpuscular Hemoglobin 28.5 pg (27.0-31.0); Mean Corpuscular Volume 87.5 fL (78.0-98.0); Mean Platelet Volume 8.8 fL (7.4-10.4); Platelet Count 85 thou/uL (130-400); RBC Distribution Width 13.4 % (11.5-14.5); Red Blood Cell (RBC) Count 3.09 mill/uL (4.20-5.40); White Blood Cell (WBC) Count 10.6 thou/uL (4.8-10.8)
[2022-01-11 06:31] LABS: Anion Gap 10 mmol/L (10-20); BUN (Urea Nitrogen) 48 mg/dL (9.8-20.1); Calc. Creatinine Clearance 78 mL/min (70-130); Calcium 9.1 mg/dL (7.8-10.44); Carbon Dioxide 29 mmol/L (23-31); Chloride 104 mmol/L (98-107); Glucose 196 mg/dL (80-115); Potassium 4.2 mmol/L (3.5-5.1); Sodium 139 mmol/L (136-145)
[2022-01-11] MEDS: HumaLOG 300 UNITS/3 ML VIAL SC PRN ×4 (07:07→20:34)
[2022-01-11] MEDS: Mometasone 200 MCG/Formoterol 5 MCG 120 PUFF INHALER INH SCH ×2 (07:56→19:14)
[2022-01-11] MEDS: Iron Polysaccharides Complex 150 MG CAP PO SCH (08:45)
[2022-01-11] MEDS: Cefepime 1 GM in Sodium Chloride 0.9% 100 ML IVPB SCH ×2 (08:46→20:32)
[2022-01-11] MEDS: Apixaban 5 MG TAB PO SCH (08:46)
[2022-01-11] MEDS: Calcium Carbonate 500 MG TAB PO SCH (08:46)
[2022-01-11] MEDS: Dexamethasone 4 MG TAB PO SCH (08:47)
[2022-01-11] MEDS: Cholecalciferol 1,000 UNITS (25 MCG) TAB PO SCH (08:47)
[2022-01-11] MEDS: Hydrochlorothiazide 25 MG TAB PO SCH (08:48)
[2022-01-11] MEDS: Loratadine 10 MG TAB PO SCH (08:48)
[2022-01-11] MEDS: Lantus 1000 UNITS/10 ML VIAL SC SCH ×2 (08:48→08:51)
[2022-01-11] MEDS: Zinc Sulfate 220 MG CAP PO SCH (08:49)
[2022-01-11] MEDS: Magnesium Oxide 400 MG TAB PO SCH (08:49)
[2022-01-11] MEDS: Multivitamin W/ Minerals 1 TAB PO SCH (08:49)
[2022-01-11] MEDS: Fluticasone Propionate Nasal Spray 16 gm Bottle NASAL SCH (08:49)
[2022-01-11] MEDS ORDERED: Melatonin 3 MG TAB PO PRN (09:00)
[2022-01-11] MEDS ORDERED: Amlodipine 5 MG TAB PO SCH ×2 (09:00→21:00)
[2022-01-11] MEDS: Micafungin 100 MG in Sodium Chloride 0.9% 100 ML IVPB SCH (12:45)
[2022-01-11 18:19] LABS: #Lymphocytes 0.5 thou/uL (1.20-3.40); #Monocytes 0.1 thou/uL (0.11-0.59); #Neutrophils 9.7 thou/uL (1.40-6.50); %Basophils 0.1 % (0.0-1.0); %Lymphocytes 5.2 % (21.0-51.0); %Monocytes 1.3 % (0.0-10.0); %Neutrophils 93.4 % (42.0-75.0); Mean Corpuscular HGB CONC 32.5 g/dL (32.0-36.0); Mean Corpuscular Hemoglobin 28.6 pg (27.0-31.0); Mean Platelet Volume 8.5 fL (7.4-10.4); Platelet Count 92 thou/uL (130-400); RBC Distribution Width 13.6 % (11.5-14.5); Red Blood Cell (RBC) Count 3.13 mill/uL (4.20-5.40); White Blood Cell (WBC) Count 10.4 thou/uL (4.8-10.8)
[2022-01-11] MEDS: Thyroid 30 MG TAB PO SCH (20:32)
[2022-01-11] MEDS: Aspirin 81 mg Enteric Coated Tablet PO SCH (20:33)
[2022-01-11] MEDS: Lisinopril 20 MG TAB PO SCH (20:33)
[2022-01-11] MEDS: Rosuvastatin 10 MG TAB PO SCH (20:33)
[2022-01-11] MEDS: Ubidecarenone 50 MG CAP PO SCH (20:33)
[2022-01-11] MEDS: Oxymetazoline HCl 0.05% (30 ML BOT) NS PRN (20:35)
[2022-01-11] MEDS: hydrALAZINE 20 MG/ML VIAL SLOW IVP PRN (23:09)
[2022-01-12 04:35] LABS: Anion Gap 11 mmol/L (10-20); BUN (Urea Nitrogen) 50 mg/dL (9.8-20.1); Calc. Creatinine Clearance 82 mL/min (70-130); Calcium 8.9 mg/dL (7.8-10.44); Carbon Dioxide 30 mmol/L (23-31); Chloride 102 mmol/L (98-107); Glucose 194 mg/dL (80-115); Potassium 3.6 mmol/L (3.5-5.1); Sodium 139 mmol/L (136-145)
[2022-01-12 04:38] LABS: #Lymphocytes 0.7 thou/uL (1.20-3.40); #Monocytes 0.2 thou/uL (0.11-0.59); #Neutrophils 7.1 thou/uL (1.40-6.50); %Eosinophils 0.2 % (0.0-10.0); %Lymphocytes 8.9 % (21.0-51.0); Mean Corpuscular HGB CONC 32.2 g/dL (32.0-36.0); Mean Corpuscular Hemoglobin 28.4 pg (27.0-31.0); Mean Platelet Volume 9.1 fL (7.4-10.4); Platelet Count 94 thou/uL (130-400); RBC Distribution Width 13.5 % (11.5-14.5); Red Blood Cell (RBC) Count 3.16 mill/uL (4.20-5.40); White Blood Cell (WBC) Count 8.1 thou/uL (4.8-10.8)
[2022-01-12] MEDS: Mometasone 200 MCG/Formoterol 5 MCG 120 PUFF INHALER INH SCH ×2 (07:30→18:40)
[2022-01-12] MEDS ORDERED: Amlodipine 5 MG TAB PO SCH ×3 (09:00→23:45)
[2022-01-12] MEDS: Fluticasone Propionate Nasal Spray 16 gm Bottle NASAL SCH (09:20)
[2022-01-12] MEDS: Iron Polysaccharides Complex 150 MG CAP PO SCH (09:22)
[2022-01-12] MEDS: Cholecalciferol 1,000 UNITS (25 MCG) TAB PO SCH (09:23)
[2022-01-12] MEDS: Cefepime 1 GM in Sodium Chloride 0.9% 100 ML IVPB SCH ×2 (09:23→21:07)
[2022-01-12] MEDS: Calcium Carbonate 500 MG TAB PO SCH (09:23)
[2022-01-12] MEDS: Magnesium Oxide 400 MG TAB PO SCH (09:24)
[2022-01-12] MEDS: Dexamethasone 4 MG TAB PO SCH (09:24)
[2022-01-12] MEDS: Multivitamin W/ Minerals 1 TAB PO SCH (09:25)
[2022-01-12] MEDS: Loratadine 10 MG TAB PO SCH (09:25)
[2022-01-12] MEDS: Lantus 1000 UNITS/10 ML VIAL SC SCH (09:25)
[2022-01-12] MEDS: Hydrochlorothiazide 25 MG TAB PO SCH (09:25)
[2022-01-12] MEDS: Zinc Sulfate 220 MG CAP PO SCH (09:26)
[2022-01-12] MEDS: Micafungin 100 MG in Sodium Chloride 0.9% 100 ML IVPB SCH (12:41)
[2022-01-12] MEDS: HumaLOG 300 UNITS/3 ML VIAL SC PRN ×3 (12:42→21:08)
[2022-01-12] MEDS: Rosuvastatin 10 MG TAB PO SCH (21:06)
[2022-01-12] MEDS: Thyroid 30 MG TAB PO SCH (21:06)
[2022-01-12] MEDS: Apixaban 5 MG TAB PO SCH (21:06)
[2022-01-12] MEDS: Aspirin 81 mg Enteric Coated Tablet PO SCH (21:06)
[2022-01-12] MEDS: Ubidecarenone 50 MG CAP PO SCH (21:06)
[2022-01-12] MEDS: Lisinopril 20 MG TAB PO SCH (21:06)
[2022-01-13 04:15] LABS: Anion Gap 24 mmol/L (10-20); BUN (Urea Nitrogen) 46 mg/dL (9.8-20.1); Calc. Creatinine Clearance 70 mL/min (70-130); Calcium 8.8 mg/dL (7.8-10.44); Carbon Dioxide 18 mmol/L (23-31); Chloride 101 mmol/L (98-107); Glucose 329 mg/dL (80-115); Potassium 3.8 mmol/L (3.5-5.1); Sodium 139 mmol/L (136-145)
[2022-01-13 04:45] LABS: Band 2 % (5-11); Hemoglobin 9.1 g/dL (12.0-16.0); Lymphocytes 6 % (21-51); MDiff Complete? YES; Mean Corpuscular Hemoglobin 28.4 pg (27.0-31.0); Mean Corpuscular Volume 86.1 fL (78.0-98.0); Monocytes 2 % (0-10); Myelocyte 3 % (0-0); Neutrophil 87 % (42-75); Platelet Count 98 thou/uL (130-400); Platelet Morphology Comment Appears Decreased; RBC Distribution Width 13.5 % (11.5-14.5); Red Blood Cell (RBC) Count 3.21 mill/uL (4.20-5.40); White Blood Cell (WBC) Count 7.3 thou/uL (4.8-10.8)
[2022-01-13] MEDS: hydrALAZINE 20 MG/ML VIAL SLOW IVP PRN (05:12)
[2022-01-13] MEDS: HumaLOG 300 UNITS/3 ML VIAL SC PRN ×4 (07:33→21:25)
[2022-01-13] MEDS: Mometasone 200 MCG/Formoterol 5 MCG 120 PUFF INHALER INH SCH ×2 (08:18→18:57)
[2022-01-13] MEDS: Apixaban 5 MG TAB PO SCH ×2 (08:41→21:25)
[2022-01-13] MEDS: Iron Polysaccharides Complex 150 MG CAP PO SCH (08:41)
[2022-01-13] MEDS: Calcium Carbonate 500 MG TAB PO SCH (08:41)
[2022-01-13] MEDS: Cefepime 1 GM in Sodium Chloride 0.9% 100 ML IVPB SCH ×2 (08:42→21:23)
[2022-01-13] MEDS: Dexamethasone 4 MG TAB PO SCH (08:42)
[2022-01-13] MEDS: Cholecalciferol 1,000 UNITS (25 MCG) TAB PO SCH (08:42)
[2022-01-13] MEDS: Lantus 1000 UNITS/10 ML VIAL SC SCH ×2 (08:43→08:52)
[2022-01-13] MEDS: Fluticasone Propionate Nasal Spray 16 gm Bottle NASAL SCH (08:43)
[2022-01-13] MEDS: Hydrochlorothiazide 25 MG TAB PO SCH (08:43)
[2022-01-13] MEDS: Magnesium Oxide 400 MG TAB PO SCH (08:44)
[2022-01-13] MEDS: Zinc Sulfate 220 MG CAP PO SCH (08:44)
[2022-01-13] MEDS: Loratadine 10 MG TAB PO SCH (08:44)
[2022-01-13] MEDS: Multivitamin W/ Minerals 1 TAB PO SCH (08:44)
[2022-01-13] MEDS: HumaLOG 300 UNITS/3 ML VIAL SC SCH ×3 (08:52→17:11)
[2022-01-13] MEDS: Micafungin 100 MG in Sodium Chloride 0.9% 100 ML IVPB SCH (11:31)
[2022-01-13] MEDS: Lisinopril 20 MG TAB PO SCH (21:24)
[2022-01-13] MEDS: Amlodipine 5 MG TAB PO SCH (21:24)
[2022-01-13] MEDS: Aspirin 81 mg Enteric Coated Tablet PO SCH (21:24)
[2022-01-13] MEDS: Ubidecarenone 50 MG CAP PO SCH (21:24)
[2022-01-13] MEDS: Rosuvastatin 10 MG TAB PO SCH (21:25)
[2022-01-13] MEDS: Thyroid 30 MG TAB PO SCH (21:25)
[2022-01-14 03:21] LABS: #Lymphocytes 0.9 thou/uL (1.20-3.40); #Monocytes 0.3 thou/uL (0.11-0.59); #Neutrophils 6.3 thou/uL (1.40-6.50); %Basophils 0.2 % (0.0-1.0); %Eosinophils 0.4 % (0.0-10.0); %Lymphocytes 11.7 % (21.0-51.0); %Monocytes 3.8 % (0.0-10.0); %Neutrophils 83.8 % (42.0-75.0); Hemoglobin 8.9 g/dL (12.0-16.0); Mean Corpuscular HGB CONC 33.5 g/dL (32.0-36.0); Mean Corpuscular Hemoglobin 28.8 pg (27.0-31.0); Mean Corpuscular Volume 85.9 fL (78.0-98.0); Mean Platelet Volume 8.9 fL (7.4-10.4); Platelet Count 115 thou/uL (130-400); RBC Distribution Width 13.7 % (11.5-14.5); Red Blood Cell (RBC) Count 3.07 mill/uL (4.20-5.40); White Blood Cell (WBC) Count 7.5 thou/uL (4.8-10.8)
[2022-01-14 04:21] LABS: Anion Gap 6 mmol/L (10-20); BUN (Urea Nitrogen) 49 mg/dL (9.8-20.1); Calc. Creatinine Clearance 78 mL/min (70-130); Calcium 8.9 mg/dL (7.8-10.44); Carbon Dioxide 35 mmol/L (23-31); Chloride 102 mmol/L (98-107); Glucose 187 mg/dL (80-115); Potassium 3.4 mmol/L (3.5-5.1); Sodium 140 mmol/L (136-145)
[2022-01-14] MEDS ORDERED: Potassium Chloride 20 MEQ TAB PO SCH (06:00)
[2022-01-14] MEDS: hydrALAZINE 20 MG/ML VIAL SLOW IVP PRN (06:14)
[2022-01-14] MEDS: HumaLOG 300 UNITS/3 ML VIAL SC PRN ×2 (06:23→17:20)
[2022-01-14] MEDS: Mometasone 200 MCG/Formoterol 5 MCG 120 PUFF INHALER INH SCH ×2 (08:09→18:22)
[2022-01-14] MEDS: HumaLOG 300 UNITS/3 ML VIAL SC SCH ×4 (08:47→17:18)
[2022-01-14] MEDS: Multivitamin W/ Minerals 1 TAB PO SCH (08:50)
[2022-01-14] MEDS: Hydrochlorothiazide 25 MG TAB PO SCH (08:50)
[2022-01-14] MEDS: Calcium Carbonate 500 MG TAB PO SCH (08:50)
[2022-01-14] MEDS: Dexamethasone 4 MG TAB PO SCH (08:53)
[2022-01-14] MEDS: Magnesium Oxide 400 MG TAB PO SCH (08:53)
[2022-01-14] MEDS: Cholecalciferol 1,000 UNITS (25 MCG) TAB PO SCH (08:53)
[2022-01-14] MEDS: Zinc Sulfate 220 MG CAP PO SCH (08:54)
[2022-01-14] MEDS: Loratadine 10 MG TAB PO SCH (08:54)
[2022-01-14] MEDS: Fluticasone Propionate Nasal Spray 16 gm Bottle NASAL SCH (08:54)
[2022-01-14] MEDS: Apixaban 5 MG TAB PO SCH ×2 (08:54→20:28)
[2022-01-14] MEDS: Oxymetazoline HCl 0.05% (30 ML BOT) NS PRN ×2 (08:55→12:26)
[2022-01-14] MEDS: Sodium Chloride 0.65% Nasal 44 ML BOT EA NARE PRN (08:55)
[2022-01-14] MEDS: Iron Polysaccharides Complex 150 MG CAP PO SCH (09:00)
[2022-01-14] MEDS: Cefepime 1 GM in Sodium Chloride 0.9% 100 ML IVPB SCH ×2 (09:00→20:31)
[2022-01-14] MEDS: Lantus 1000 UNITS/10 ML VIAL SC SCH (09:06)
[2022-01-14] MEDS: Micafungin 100 MG in Sodium Chloride 0.9% 100 ML IVPB SCH (12:27)
[2022-01-14] MEDS: Ubidecarenone 50 MG CAP PO SCH (20:28)
[2022-01-14] MEDS: Aspirin 81 mg Enteric Coated Tablet PO SCH (20:28)
[2022-01-14] MEDS: Amlodipine 5 MG TAB PO SCH (20:30)
[2022-01-14] MEDS: Rosuvastatin 10 MG TAB PO SCH (20:31)
[2022-01-14] MEDS: Lisinopril 20 MG TAB PO SCH (22:13)
[2022-01-14] MEDS: Thyroid 30 MG TAB PO SCH (22:13)
[2022-01-15 06:52] LABS: #Eosinphils 0.1 thou/uL (0.0-0.7); #Monocytes 0.3 thou/uL (0.11-0.59); #Neutrophils 5.1 thou/uL (1.40-6.50); %Eosinophils 1.2 % (0.0-10.0); %Lymphocytes 15.6 % (21.0-51.0); %Neutrophils 79.2 % (42.0-75.0); Hemoglobin 8.8 g/dL (12.0-16.0); Mean Corpuscular HGB CONC 32.6 g/dL (32.0-36.0); Mean Corpuscular Hemoglobin 28.3 pg (27.0-31.0); Mean Corpuscular Volume 86.9 fL (78.0-98.0); Mean Platelet Volume 8.8 fL (7.4-10.4); Platelet Count 118 thou/uL (130-400); RBC Distribution Width 13.8 % (11.5-14.5); Red Blood Cell (RBC) Count 3.11 mill/uL (4.20-5.40); White Blood Cell (WBC) Count 6.5 thou/uL (4.8-10.8)
[2022-01-15 07:07] LABS: Anion Gap 15 mmol/L (10-20); BUN (Urea Nitrogen) 51 mg/dL (9.8-20.1); Calc. Creatinine Clearance 89 mL/min (70-130); Calcium 8.9 mg/dL (7.8-10.44); Carbon Dioxide 27 mmol/L (23-31); Chloride 102 mmol/L (98-107); Glucose 159 mg/dL (80-115); Potassium 3.7 mmol/L (3.5-5.1); Sodium 140 mmol/L (136-145)
[2022-01-15] MEDS: Mometasone 200 MCG/Formoterol 5 MCG 120 PUFF INHALER INH SCH ×2 (07:58→23:19)
[2022-01-15] MEDS ORDERED: Lantus 1000 UNITS/10 ML VIAL SC SCH (09:00)
[2022-01-15] MEDS: Cefepime 1 GM in Sodium Chloride 0.9% 100 ML IVPB SCH ×2 (09:31→20:30)
[2022-01-15] MEDS: HumaLOG 300 UNITS/3 ML VIAL SC SCH ×3 (09:33→17:22)
[2022-01-15] MEDS: Lantus 1000 UNITS/10 ML VIAL SC SCH (09:33)
[2022-01-15] MEDS: Calcium Carbonate 500 MG TAB PO SCH (09:36)
[2022-01-15] MEDS: Zinc Sulfate 220 MG CAP PO SCH (09:36)
[2022-01-15] MEDS: Multivitamin W/ Minerals 1 TAB PO SCH (09:36)
[2022-01-15] MEDS: Apixaban 5 MG TAB PO SCH ×2 (09:36→20:14)
[2022-01-15] MEDS: Hydrochlorothiazide 25 MG TAB PO SCH (09:36)
[2022-01-15] MEDS: Magnesium Oxide 400 MG TAB PO SCH (09:36)
[2022-01-15] MEDS: Dexamethasone 4 MG TAB PO SCH (09:36)
[2022-01-15] MEDS: Iron Polysaccharides Complex 150 MG CAP PO SCH (09:36)
[2022-01-15] MEDS: Loratadine 10 MG TAB PO SCH (09:37)
[2022-01-15] MEDS: Cholecalciferol 1,000 UNITS (25 MCG) TAB PO SCH (09:37)
[2022-01-15] MEDS: Fluticasone Propionate Nasal Spray 16 gm Bottle NASAL SCH (09:38)
[2022-01-15] MEDS: Oxymetazoline HCl 0.05% (30 ML BOT) NS PRN (09:50)
[2022-01-15] MEDS: Micafungin 100 MG in Sodium Chloride 0.9% 100 ML IVPB SCH (09:56)
[2022-01-15] MEDS: HumaLOG 300 UNITS/3 ML VIAL SC PRN (17:22)
[2022-01-15] MEDS: Lisinopril 20 MG TAB PO SCH (20:14)
[2022-01-15] MEDS: Amlodipine 5 MG TAB PO SCH (20:14)
[2022-01-15] MEDS: Rosuvastatin 10 MG TAB PO SCH (20:14)
[2022-01-15] MEDS: Ubidecarenone 50 MG CAP PO SCH (20:15)
[2022-01-15] MEDS: Aspirin 81 mg Enteric Coated Tablet PO SCH (20:15)
[2022-01-15] MEDS: Thyroid 30 MG TAB PO SCH (20:26)
[2022-01-16 03:19] LABS: #Lymphocytes 0.9 thou/uL (1.20-3.40); #Monocytes 0.4 thou/uL (0.11-0.59); #Neutrophils 4.3 thou/uL (1.40-6.50); %Basophils 0.1 % (0.0-1.0); %Eosinophils 0.7 % (0.0-10.0); %Lymphocytes 16.2 % (21.0-51.0); %Monocytes 6.3 % (0.0-10.0); %Neutrophils 76.7 % (42.0-75.0); Hemoglobin 9.1 g/dL (12.0-16.0); Mean Corpuscular HGB CONC 33.9 g/dL (32.0-36.0); Mean Corpuscular Hemoglobin 28.9 pg (27.0-31.0); Mean Corpuscular Volume 85.5 fL (78.0-98.0); Mean Platelet Volume 8.2 fL (7.4-10.4); Platelet Count 122 thou/uL (130-400); RBC Distribution Width 13.9 % (11.5-14.5); Red Blood Cell (RBC) Count 3.14 mill/uL (4.20-5.40); White Blood Cell (WBC) Count 5.6 thou/uL (4.8-10.8)
[2022-01-16 03:38] LABS: Anion Gap 9 mmol/L (10-20); BUN (Urea Nitrogen) 45 mg/dL (9.8-20.1); Calc. Creatinine Clearance 90 mL/min (70-130); Calcium 8.6 mg/dL (7.8-10.44); Carbon Dioxide 31 mmol/L (23-31); Chloride 101 mmol/L (98-107); Glucose 141 mg/dL (80-115); Potassium 3.4 mmol/L (3.5-5.1); Sodium 138 mmol/L (136-145)
[2022-01-16] MEDS ORDERED: Potassium Chloride 20 MEQ TAB PO SCH (07:00)
[2022-01-16] MEDS: Mometasone 200 MCG/Formoterol 5 MCG 120 PUFF INHALER INH SCH ×2 (07:00→18:52)
[2022-01-16] MEDS: Iron Polysaccharides Complex 150 MG CAP PO SCH (10:11)
[2022-01-16] MEDS: Hydrochlorothiazide 25 MG TAB PO SCH (10:11)
[2022-01-16] MEDS: Multivitamin W/ Minerals 1 TAB PO SCH (10:11)
[2022-01-16] MEDS: Cholecalciferol 1,000 UNITS (25 MCG) TAB PO SCH (10:12)
[2022-01-16] MEDS: Dexamethasone 4 MG TAB PO SCH (10:12)
[2022-01-16] MEDS: Magnesium Oxide 400 MG TAB PO SCH (10:13)
[2022-01-16] MEDS: Loratadine 10 MG TAB PO SCH (10:13)
[2022-01-16] MEDS: Zinc Sulfate 220 MG CAP PO SCH (10:13)
[2022-01-16] MEDS: Apixaban 5 MG TAB PO SCH ×2 (10:13→20:21)
[2022-01-16] MEDS: Calcium Carbonate 500 MG TAB PO SCH (10:13)
[2022-01-16] MEDS: Lantus 1000 UNITS/10 ML VIAL SC SCH (10:13)
[2022-01-16] MEDS: HumaLOG 300 UNITS/3 ML VIAL SC SCH ×3 (10:14→17:13)
[2022-01-16] MEDS: Cefepime 1 GM in Sodium Chloride 0.9% 100 ML IVPB SCH ×3 (10:14→20:34)
[2022-01-16] MEDS: Fluticasone Propionate Nasal Spray 16 gm Bottle NASAL SCH (10:15)
[2022-01-16] MEDS: Oxymetazoline HCl 0.05% (30 ML BOT) NS PRN (10:15)
[2022-01-16] MEDS: Micafungin 100 MG in Sodium Chloride 0.9% 100 ML IVPB SCH (11:55)
[2022-01-16] MEDS: HumaLOG 300 UNITS/3 ML VIAL SC PRN ×3 (11:56→20:50)
[2022-01-16] MEDS: Aspirin 81 mg Enteric Coated Tablet PO SCH (20:21)
[2022-01-16] MEDS: Ubidecarenone 50 MG CAP PO SCH (20:21)
[2022-01-16] MEDS: Rosuvastatin 10 MG TAB PO SCH (20:21)
[2022-01-16] MEDS: Lisinopril 20 MG TAB PO SCH (21:34)
[2022-01-16] MEDS: NIFEdipine 10 MG CAP PO SCH (23:46)
[2022-01-16] MEDS: Thyroid 30 MG TAB PO SCH (23:54)
[2022-01-17 04:14] LABS: Anion Gap 12 mmol/L (10-20); BUN (Urea Nitrogen) 40 mg/dL (9.8-20.1); Calc. Creatinine Clearance 96 mL/min (70-130); Calcium 8.7 mg/dL (7.8-10.44); Chloride 101 mmol/L (98-107); Glucose 165 mg/dL (80-115); Potassium 3.9 mmol/L (3.5-5.1); Sodium 139 mmol/L (136-145)
[2022-01-17 04:14] LABS: Hemoglobin 9.2 g/dL (12.0-16.0); Mean Corpuscular Hemoglobin 28.2 pg (27.0-31.0); Mean Corpuscular Volume 85.4 fL (78.0-98.0); Mean Platelet Volume 8.6 fL (7.4-10.4); Platelet Count 154 thou/uL (130-400); Red Blood Cell (RBC) Count 3.24 mill/uL (4.20-5.40); White Blood Cell (WBC) Count 7.6 thou/uL (4.8-10.8)
[2022-01-17 04:15] LABS: Band 1 % (5-11); Hypochromia SLIGHT = 6-15 cells (100X) (0-5/hpf); Lymphocytes 34 % (21-51); MDiff Complete? YES; Monocytes 4 % (0-10); Neutrophil 61 % (42-75); Platelet Morphology Comment Appears Adequate
[2022-01-17 04:21] LABS: Carbon Dioxide 30 mmol/L (23-31)
[2022-01-17] MEDS: Thyroid 30 MG TAB PO SCH (06:13)
[2022-01-17] MEDS: Mometasone 200 MCG/Formoterol 5 MCG 120 PUFF INHALER INH SCH ×2 (08:13→19:19)
[2022-01-17] MEDS: Zinc Sulfate 220 MG CAP PO SCH (08:35)
[2022-01-17] MEDS: Cholecalciferol 1,000 UNITS (25 MCG) TAB PO SCH (08:35)
[2022-01-17] MEDS: Iron Polysaccharides Complex 150 MG CAP PO SCH (08:35)
[2022-01-17] MEDS: Magnesium Oxide 400 MG TAB PO SCH (08:36)
[2022-01-17] MEDS: Dexamethasone 4 MG TAB PO SCH (08:36)
[2022-01-17] MEDS: Calcium Carbonate 500 MG TAB PO SCH (08:36)
[2022-01-17] MEDS: Hydrochlorothiazide 25 MG TAB PO SCH (08:36)
[2022-01-17] MEDS: Multivitamin W/ Minerals 1 TAB PO SCH (08:36)
[2022-01-17] MEDS: Fluticasone Propionate Nasal Spray 16 gm Bottle NASAL SCH (08:37)
[2022-01-17] MEDS: Apixaban 5 MG TAB PO SCH ×2 (08:37→21:28)
[2022-01-17] MEDS: Loratadine 10 MG TAB PO SCH (08:37)
[2022-01-17] MEDS: Cefepime 1 GM in Sodium Chloride 0.9% 100 ML IVPB SCH (08:37)
[2022-01-17] MEDS: Lantus 1000 UNITS/10 ML VIAL SC SCH ×2 (08:38→09:12)
[2022-01-17] MEDS: HumaLOG 300 UNITS/3 ML VIAL SC SCH ×4 (08:38→18:35)
[2022-01-17] MEDS ORDERED: Sulfameth/Trimethoprim DS 800-160mg TAB PO SCH (09:00)
[2022-01-17] MEDS: Lisinopril 20 MG TAB PO SCH (21:28)
[2022-01-17] MEDS: Aspirin 81 mg Enteric Coated Tablet PO SCH (21:28)
[2022-01-17] MEDS: Rosuvastatin 10 MG TAB PO SCH (21:28)
[2022-01-17] MEDS: Ubidecarenone 50 MG CAP PO SCH (21:28)
[2022-01-17] MEDS: HumaLOG 300 UNITS/3 ML VIAL SC PRN (21:31)
[2022-01-18] MEDS: NIFEdipine 10 MG CAP PO SCH (00:08)
[2022-01-18] MEDS: Thyroid 30 MG TAB PO SCH (06:07)
[2022-01-18] MEDS: HumaLOG 300 UNITS/3 ML VIAL SC PRN (06:08)
[2022-01-18] MEDS: Mometasone 200 MCG/Formoterol 5 MCG 120 PUFF INHALER INH SCH (07:30)
[2022-01-18] MEDS: Magnesium Oxide 400 MG TAB PO SCH (09:49)
[2022-01-18] MEDS: Multivitamin W/ Minerals 1 TAB PO SCH (09:49)
[2022-01-18] MEDS: Calcium Carbonate 500 MG TAB PO SCH (09:49)
[2022-01-18] MEDS: Zinc Sulfate 220 MG CAP PO SCH (09:49)
[2022-01-18] MEDS: Iron Polysaccharides Complex 150 MG CAP PO SCH (09:49)
[2022-01-18] MEDS: Cholecalciferol 1,000 UNITS (25 MCG) TAB PO SCH (09:50)
[2022-01-18] MEDS: Dexamethasone 4 MG TAB PO SCH (09:51)
[2022-01-18] MEDS: Apixaban 5 MG TAB PO SCH (09:51)
[2022-01-18] MEDS: Hydrochlorothiazide 25 MG TAB PO SCH (09:51)
[2022-01-18] MEDS: Loratadine 10 MG TAB PO SCH (09:53)
[2022-01-18] MEDS: Fluticasone Propionate Nasal Spray 16 gm Bottle NASAL SCH (09:53)
[2022-01-18] MEDS ORDERED: Lantus 1000 UNITS/10 ML VIAL SC SCH (10:45)
[2022-01-18] MEDS: HumaLOG 300 UNITS/3 ML VIAL SC SCH ×4 (12:00→17:06)
[2022-01-18] MEDS: Lantus 1000 UNITS/10 ML VIAL SC SCH (12:15)
[2022-01-18 17:11] VITALS: BP 151/76; TEMP 97.8
[2022-01-19] MEDS ORDERED: Lantus 1000 UNITS/10 ML VIAL SC SCH (09:00)
[2022-01-19 14:28] LABS: Actual Bicarbonate (HCO3a) 25.5 mEq/L (22-28); Base Excess (BEa) 2.3 mEq/L (-2.0 to +3.0); CO2 Tension 34.2 mmHg (35.0-45.0); Calcium, Ionized (arterial) 1.13 mmol/L (1.12-1.30); Carboxyhemoglobin (COHb) 0.3 gm% (0.0-3.0); Hemoglobin (Hb) 10.5 g/dL (12.0-16.0); O2 Tension (PaO2), arterial 63.9 mmHg (> 80.0); Potassium - ABG Lab 4.16 mmol/L (3.70-5.30); pH, Arterial 7.49 (7.35-7.45)
[2022-01-19 14:30] LABS: Puncture Site RBA
== END 2022-01-18 19:15 | DRG 196 ==
LOC: ERS 13:58 → IMCU/EMU 16:47 → 2NO 01-18 06:28
PROVIDERS: ADMIT Emergency Medicine; ATTEND Emergency Medicine
DX: J84.10 Pulmonary fibrosis, unspecified (principal); J96.21 Acute and chronic respiratory failure with hypoxia; G72.0 Drug-induced myopathy; D69.6 Thrombocytopenia, unspecified; E87.6 Hypokalemia; K21.9 Gastro-esophageal reflux disease without esophagitis; E78.5 Hyperlipidemia, unspecified; E03.9 Hypothyroidism, unspecified; I48.91 Unspecified atrial fibrillation; R94.31 Abnormal electrocardiogram [ECG] [EKG]; J30.9 Allergic rhinitis, unspecified; I10 Essential (primary) hypertension; K74.60 Unspecified cirrhosis of liver; T46.2X5A Adverse effect of other antidysrhythmic drugs, initial encounter; F41.9 Anxiety disorder, unspecified; I95.1 Orthostatic hypotension; R73.9 Hyperglycemia, unspecified; T38.0X5A Adverse effect of glucocorticoids and synthetic analogues, initial encounter; B94.8 Sequelae of other specified infectious and parasitic diseases; Z91.040 Latex allergy status; Z79.82 Long term (current) use of aspirin; Z79.01 Long term (current) use of anticoagulants; Z79.899 Other long term (current) drug therapy; Z79.4 Long term (current) use of insulin; Z95.2 Presence of prosthetic heart valve
CPT/HCPCS: 36415; 36416; 36600; 71275; 76705; 80048; 82553; 82805; 83605; 83880; 84145; 84484; 85025; 85060; 87040; 93005; 94640; 96365; 96367; 96375; J0360; J0692; J1815; J2248; J2930; J3370; J3480; J3490; J7620; J8540; Q9967